=== PATIENT | male | born 1955 | race Caucasian/White ===

== ENCOUNTER → 2023-04-15 12:15 | Outpatient (REF) | payer OTHER, SELFPAY | LOC: WOUND 12:15 | PROVIDERS: ATTENDING PHYSICIAN Surgery; REFERRING PHYSICIAN Family Medicine | DX: I87.312 Chronic venous hypertension (idiopathic) with ulcer of left lower extremity (principal); L97.222 Non-pressure chronic ulcer of left calf with fat layer exposed; I87.2 Venous insufficiency (chronic) (peripheral); I73.9 Peripheral vascular disease, unspecified; I10 Essential (primary) hypertension; K76.0 Fatty (change of) liver, not elsewhere classified; E80.4 Gilbert syndrome | CPT/HCPCS: 97597; 97598 ==

== ENCOUNTER 2023-12-04 17:43 | Inpatient (IN) | payer OTHER, MEDICARE, SELFPAY ==
[2023-12-04] VITALS (8 sets, daily range): BP systolic 93–133; BP diastolic 66–83; BMI 50.1; BMI 48.5
[2023-12-04 13:29] LABS: % Basophils 0.2 % (0-2); % Eosinophils 1.3 % (0-6); % Immature Granulocytes 0.4 % (0-0.5); % Lymphocytes 4.8 % (20.5-51.1); % Monocytes 5.7 % (1.7-9.3); % Neutrophils 87.6 % (42.2-75.2); Absolute Eosinophils 0.2 10^3/uL (0-0.7); Absolute Immature Granulocytes 0.1 10^3/uL (0-0.05); Absolute Lymphocytes 0.6 10^3/uL (1.2-3.4); Absolute Monocytes 0.7 10^3/uL (0.1-0.6); Absolute Neutrophils 11.2 10^3/uL (1.4-6.5); Hematocrit 39.4 % (39.0-52.0); Hemoglobin 13.6 g/dL (13.0-18.0); Mean Corp Hgb Conc. 34.5 g/dL (33.0-37.0); Mean Corpuscular Hgb 29.5 pg (27.0-31.0); Mean Corpuscular Volume 85.5 fL (80.0-94.0); Mean Platelet Volume 9.5 fL (7.4-10.4); Nucleated Red Blood Cells % 0 % (-); Platelet Count 162 10^3/uL (130-400); Red Blood Cell Count 4.61 10^6/uL (4.70-6.10); Red Cell Dist. Width 15.1 % (11.5-14.5); White Blood Cell Count 12.7 10^3/uL (4.8-10.8)
[2023-12-04 13:43] LABS: Lactic Acid 1.3 mmol/L (0.7-2.0)
[2023-12-04 13:45] LABS: ALT (SGPT) 20 U/L (0-50); AST (SGOT) 24 U/L (17-59); Albumin 3.7 g/dl (3.5-5.0); Alkaline Phosphatase 68 U/L (38-126); Blood Urea Nitrogen 23 mg/dl (9-20); Calcium 8.8 mg/dl (8.4-10.2); Carbon Dioxide 29 mmol/L (22-30); Chloride 102 mmol/L (98-107); Estimated Creatinine Clearance 95 ml/min; Glucose 103 mg/dl (70-99); Potassium 3.9 mmol/L (3.5-5.1); Sodium 137 mmol/L (135-145); Total Bilirubin 1.4 mg/dl (0.2-1.3); Total Protein 6.7 g/dl (6.3-8.2); eGFR > 60.00
--- NOTE | 2023-12-04 16:11 | ED.GENMED ---
History of Present Illness
General
Chief Complaint: Weakness
Source: patient
Exam Limitations: none
Time Seen by Provider: 12/04/23 13:05
Travel History
Have you had any contact with someone who has COVID-19?: No
Do you have any symptoms of coronavirus? Fever > 100 degrees, chills, cough, shortness of breath, sore throat, loss of taste or smell, muscle aches, or headache?: No
History of Present Illness
History of Present Illness:
60-year-old male who presents after he came home from work was profoundly weak. He was found to be hypotensive by EMS. Patient does not have a history of cellulitis in the past. He was given IV fluids by EMS. Patient states he felt okay at work
when he got home he was profoundly weak. No chest pain. No shortness of breath. No abdominal pain. No vomiting. No diarrhea.
Past History
Past History
ED Past Medical History: HTN and Other (Obesity)
ED Past Surgical History: Orthopedic
Social History
Tobacco: Non-smoker
Alcohol: Occasional
Drug: None
Personal:
Living: with family
Family History
Family History: Other
Phy Exam
Physical Exam
Physical Exam:
CONSTITUTIONAL Patient alert and oriented to person, place and time. Well-appearing. Vital signs reviewed. Obese
HEAD atraumatic, normocephalic.
EYES eyelids normal to inspection,Extraocular muscles intact, Conjunctiva normal, Sclera normal.
NECK normal range of motion, Trachea midline, no jugular venous distention.
RESPIRATORY CHEST No respiratory distress noted, Chest expansion equal, Bilateral breath sounds clear.
CARDIOVASCULAR regular rate and rhythm, Heart sounds normal.
ABDOMEN abdomen nontender, Bowel sounds normal. No distention.
BACK normal inspection, no obvious deformities
UPPER EXTREMITY range of motion normal, Motor strength normal, no cyanosis, no edema.
LOWER EXTREMITY range of motion normal, Motor strength normal, no cyanosis, bilateral venous stasis noted. Redness noted throughout the right lower extremity much more significant than left side. Redness noted from the foot to the knee.
NEURO Speech normal, No focal motor deficits, [place] coma scale 15, Memory normal, Cranial Nerves intact to screening exam.
SKIN skin warm, dry, and normal in color.
PSYCHIATRIC patient oriented to person place and time, Normal affect.
Course
Orders/Labs/Results
Orders:
Orders
12/04/23 12:55
Electrocardiogram (*1) Urgent
Reason for Study: Other
Other Reason for Exam: Possible Sepsis
Cardiac Monitoring- Treatment ONCE
EKG- Treatment ONCE
IV Insert/Care/Rem.- Treatment PRN
O2 Therapy [RESP] Urgent
Titrate/Wean O2 to maintain O2 sat greater than (%): 93
Special Instructions: TO MAINTAIN CONTINUOUS O2 SATS > OR = 93%
Pulse Ox/cont/shift [RESP] Urgent
Quantity: 1
Special Instructions: CONTINUOUS
12/04/23 13:18
Complete Blood Count/With Diff Urgent
Comprehensive Metabolic Panel Urgent
Lactic Acid Q4H
Comment: ON ICE, CANCEL 2ND ORDER IF FIRST LACTIC ACID LEVEL <2
Blood Culture Q30M
BETHEL Source: Blood/Venous
Specimen Description:
Comment: FROM 2 SEPARATE SITES
Blood Culture Q30M
BETHEL Source: Blood/Venous
Specimen Description:
Comment: FROM 2 SEPARATE SITES
12/04/23 16:10
Vancomycin [Vancocin] 2,000 mg 0.9% Sodium Chloride 500 ml [Nss] 500 ml IV NOW
Abnormal Lab Results
12/04/23
13:18
WBC 12.7 H 10^3/uL
(4.8-10.8)
RBC 4.61 L 10^6/uL
(4.70-6.10)
RDW 15.1 H %
(11.5-14.5)
Abs Immat Gran (auto) 0.1 H 10^3/uL
(0-0.05)
Absolute Neuts (auto) 11.2 H 10^3/uL
(1.4-6.5)
Absolute Lymphs (auto) 0.6 L 10^3/uL
(1.2-3.4)
Absolute Monos (auto) 0.7 H 10^3/uL
(0.1-0.6)
Neutrophils % 87.6 H %
(42.2-75.2)
Lymphocytes % 4.8 L %
(20.5-51.1)
BUN 23 H mg/dl
(9-20)
Glucose 103 H mg/dl
(70-99)
Total Bilirubin 1.4 H mg/dl
(0.2-1.3)
12/04/23 13:18
12/04/23 13:18
Vital Signs
Initial and Last Documented VS:
Initial Vital Signs
Temp Pulse Resp BP Pulse Ox
99.0 F 84 25 93/83 92
12/04/23 13:00 12/04/23 13:00 12/04/23 13:00 12/04/23 13:00 12/04/23 13:00
Last Documented Vital Signs
Temp Pulse Resp BP Pulse Ox
99.1 F 68 28 127/68 96
12/04/23 15:14 12/04/23 15:45 12/04/23 15:45 12/04/23 14:00 12/04/23 15:45
MDM/Problems Addressed
MDM/Problems Addressed:
Morbid obesity, cellulitis, hypotension
*Pulse Oximetry
Patient hypoxic: no
*EKG
Interpreted by ED Provider?: Yes
Interpretation: abnormal
Rate: normal
Rhythm: sinus
[place]: left axis deviation
Ischemia: non-specific ST changes
*Fisher Eel Interpretation
Rate: normal
Interpretation: normal
Rhythm: sinus
*Critical Care Note
Total Time (30-74mins, 75-104mins- exclusive of procedures): Not Applicable
Data Reviewed
Review of Other/Old Records Reveals: Discharge Summary (2022 discharge summary reviewed. Prior history of cellulitis)
Source: patient
Further Testing Considered But Not Given:
Consider COVID testing but no URI sx's
Patient Management
Discussion with other providers: Hospitalist
Escalation/DeEscalation of care consider admission/obs:
68yo with hypotension and weakness. febrile here to 100.4. cx's sent. suspect cellulitis as etiology. admit
ED Attending Note
-
Portions of this chart may have been created with voice recognition software.� Occasional wrong word or��sound alike� substitutions may have occurred due to the inherent limitations of voice recognition software.
Discharge Plan
Departure
Patient Disposition: Admit
Date of Disposition: 12/04/23
Time of Disposition: 16:21
Admit to: Telemetry
Presentation/result/management discussed w/ accepting MD/DO: Hospitalist
Discharge Problem:
Cellulitis, Obesity
Prescriptions:
No Action
lisinopril-hydrochlorothiazide 20-12.5 mg Tablet
1 tab PO DAILY
aspirin 81 mg Tablet,Delayed Release (Dr/Ec)
81 mg PO DAILY
Centrum Men 8 mg iron- 200 mcg-600 mcg Tablet
1 tab PO DAILY
ibuprofen-acetaminophen [Dual Action Pain Reliever] 125-250 mg Tablet
2 tab PO DAILYPRN PRN (Reason: mild pain)
Turmeric + Piperine
2 cap PO DAILY
Referrals:
Alcides Yuen DO [Family Provider] -
Discharge Date and Time
Print Language: NOR[place] KOREAN
--- NOTE | 2023-12-04 16:21 | HPS.HSE ---
Family Physician
-
Family Physician: Alcides Yuen
Chief Complaint
-
generalized weakness
History of Present Illness
60-year-old male with PMH for HTN, obesity who presents after he came home from work was profoundly weak and not able to weak. his lowered him on the floor as he was not able to walk. he hit his head on rail. he had tamp of 100.7 at that time.
as per , he right LE looked redder than last week. he had wound on back on his leg, which was treated by wound care. Patient denied any headache, dizziness, syncopal episode. Pain, shortness of breath, cough, congestion. Patient denies
abdominal pain, nausea, vomiting, diarrhea. Patient denies dysuria hematuria.
On arrival he was hypertensive, noted elevated WBCs, fever of 100.4 patient received IV vancomycin in the ER. Admitting for further management
Medical History
Past Medical History
Past Medical History: Reports Other
Additional Past Medical History:
Gilbert's syndrome
Lumbar spinal stenosis
Lumbar herniated disc
Adrenal adenoma
fatty liver
Degenerative disc disease chronic venous hypertension
Peripheral venous insufficiency
Hypertension
Nonpressure chronic ulcer of left calf
Past Surgical History: Reports Other
Additional Past Surgical History:
Left total hip replacement
Social History
Tobacco: Non-smoker
Alcohol: None
Drug: None
Personal:
Living: With Family
Family History
Family History: Not pertinent
Allergies / Home Medications
Allergies reflects when Allergies were last updated in [facility].
Home Medications with original date entered in [facility]
Allergy/Medication List:
Allergies
Allergy/AdvReac Type Severity Reaction Status Date / Time
shrimp Allergy wheeze Verified 05/25/23 17:57
Home Medications
Turmeric + Piperine 2 cap PO DAILY 12/04/23
aspirin 81 mg tablet,delayed release 81 mg PO DAILY 12/04/23
ibuprofen 125 mg-acetaminophen 250 mg tablet (Dual Action Pain Reliever) 2 tab PO DAILYPRN PRN mild pain 12/04/23
lisinopril 20 mg-hydrochlorothiazide 12.5 mg tablet 1 tab PO DAILY 12/04/23
multivit,Ca,min-iron 8 mg-folic acid 200 mcg-lycopene 600 mcg tablet (Centrum Men) 1 tab PO DAILY 12/04/23
Review of Systems
-
Constitutional: Reports Fever and Fatigue
EENT: Reports No Symptoms
Respiratory: Reports No Symptoms
Cardiac: Reports No Symptoms
Abdomen/GI: Reports No Symptoms
: Reports No Symptoms
Musculoskeletal: Reports No Symptoms
Skin: Reports Other (Right lower extremity red)
Neurological: Reports Weakness
Endocrine: Reports No Symptoms
Hematologic/Lymphatic: Reports No Symptoms
Psych: Reports No Symptoms
Physical Exam
Vital Signs
Vital Signs
Temp Pulse Resp BP Pulse Ox
99.1 F 68 28 127/68 96
12/04/23 15:14 12/04/23 15:45 12/04/23 15:45 12/04/23 14:00 12/04/23 15:45
Physical Exam
General: Well Developed, Well Nourished and No Apparent Distress
HEENT: NormoCephalic, Moist mucous membranes and Atraumatic
Respiratory: Clear
Cardiac: S1/S2 and Regular Rhythm; No Murmur or Rub
GI: Soft, Non Tender, Non Distended and Normal Bowel Sounds; No Organomegaly
Rectal: Deferred by Provider
Musculoskeletal: No Clubbing, No Cyanosis and No Edema
Skin: Rash and Other (Right lower extremities redness)
Neuro: AO x 3 and Nonfocal/grossly intact
Psych: Calm
Laboratory Results
-
12/04/23 13:18
12/04/23 13:18
Laboratory Results
Lactic Acid 1.3 mmol/L (0.7-2.0) 12/04/23 13:18
Lactic Acid Cancelled 12/04/23 13:18
Total Bilirubin 1.4 mg/dl (0.2-1.3) H 12/04/23 13:18
AST 24 U/L (17-59) 12/04/23 13:18
ALT 20 U/L (0-50) 12/04/23 13:18
Alkaline Phosphatase 68 U/L (38-126) 12/04/23 13:18
Data Reviewed
-
Lab Data: Labs Reviewed by me
Impression/Plan
-
#fever likely from cellulitis
- sepsis as evident by wbc 12.7, fever 100.4,hypotension
-blood culture sent from ER
-vancomycin in ER
-cefazolin
-Tylenol prn for pain
#Chronic venous stasis dermatitis
#Essential Hypertension
-Hypotensive in ER
-Hold lisinopril/HCTZ
#Morbid Obesity due to excess calories
#DVT prophylaxis�subcu Lovenox
#Full code
--- NOTE | 2023-12-04 16:23 | W.PN.UPDATE ---
Update Note
Progress Note Update
This is an addendum to H&P written by OCULAR PATHOLOGIST Yusra Jackson.
I saw and examined the patient.
The OCULAR PATHOLOGIST's note was reviewed and I agree with the note.
Comment:
Mr. Alcides Paul is a 68 yo man with hx obesity, essential hypertension, chronic venous stasis dermatitis, chronic left lower extmirety wounds, hx recurrent lower extremity cellulitis (admission May 2023) presents to the ER with fever.
Triage VS: T 99, P 84, RR 25, BP 93/83 up to 127/68 post fluids, SpO2 92%
LABS: WBC 12.7, Hg 13.6, PLT 162, Na 137, K+ 3.9, Cl 102, Cr 1.0, Glucose 103, T. Bili 1.4
Lactate 1.3
MAR: IV Vancomycin
On exam patient appears flushed, he is conversant, lung clear. obese. LLE with chronic venous changes; RLE with significant erythema, swelling.
Sepsis 2/2 RLE Cellulitis
-admit to med/surg
-IV Vanc/Cefazolin
-IVF
-F/U cultures
Essential HTN
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
DVT PPx Lovenox
[2023-12-04] MEDS: VANCOCIN 540 MG IV (16:46)
[2023-12-04] MEDS: TYLENOL 650 MG PO (17:51)
[2023-12-04] MEDS: ANCEF 10 IV (18:28)
--- NOTE | 2023-12-04 19:45 | PTCARENOTE ---
Pt arrived to room 437-01. Pt transferred from stretcher to bed. Pt AAOx3, VSS. Pt in no signs of acute distress, respirations regular. at bedside. Pt oriented to room, call bone placed within reach.
[2023-12-04] MEDS: LOVENOX 40 MG SC (20:26)
[2023-12-04] MEDS: NSS 1000 IV (20:27)
[2023-12-05] MEDS: ANCEF 10 IV ×3 (01:45→16:42)
[2023-12-05 06:36] LABS: Hemoglobin 12.9 g/dL (13.0-18.0); Mean Corp Hgb Conc. 32.3 g/dL (33.0-37.0); Mean Corpuscular Hgb 29.2 pg (27.0-31.0); Mean Corpuscular Volume 90.5 fL (80.0-94.0); Mean Platelet Volume 9.6 fL (7.4-10.4); Platelet Count 141 10^3/uL (130-400); Red Blood Cell Count 4.42 10^6/uL (4.70-6.10); Red Cell Dist. Width 15.3 % (11.5-14.5); White Blood Cell Count 9.9 10^3/uL (4.8-10.8)
[2023-12-05 06:53] LABS: Blood Urea Nitrogen 19 mg/dl (9-20); Calcium 8.3 mg/dl (8.4-10.2); Carbon Dioxide 30 mmol/L (22-30); Chloride 103 mmol/L (98-107); Estimated Creatinine Clearance 116 ml/min; Glucose 85 mg/dl (70-99); Potassium 4.3 mmol/L (3.5-5.1); Sodium 140 mmol/L (135-145); eGFR > 60.00
[2023-12-05 06:55] LABS: Vancomycin Random 8.9 ug/ml
[2023-12-05 07:00] VITALS: BP 151/78
--- NOTE | 2023-12-05 07:57 | PHA.VAN.IN ---
Assessment
- Assessment
Renal Function: Appears similar to baseline
Concomitant Antimicrobials: cefazolin
AUC Dosing Plan
- Dosing Variables
Dosing Weight (kg): 137
Dosing CrCl (ml/min): 116
Vd coefficient (L/kg): 0.5
- Empiric Dosing
Initial / Loading Dose: 2000mg - 12/03 16:46
Maintenance Regimen: Vanc 1500mg Q12H - first dose now then 1800
Estimated AUC (mcg*h/mL): 468
Estimated Peak (mcg*h/mL): 31.2
Estimated Trough (mcg/ml): 10.8
Estimated Half Life (H): 6.9
random 8.9 - drawn ~13.5H after 2g loading dose - appropriate to start scheduled dosing
- Monitoring
No levels ordered at this time: may be slow to accumulate with BMI
Pharmacokinetics Vancomycin I
- -
Patient Age: 68
Patient Sex: Male
Vancomycin Day #: 1
Indication: Skin And Soft Tissue
Requesting Provider: Sheri Jackson
Pertinent Antimicrobial Allergies:
no pertinent antibiotic allergies
Height / Weight:
Height 5 ft 6 in
Actual Weight 136.191 kg
Pertinent Past Medical History: BMI ~48.5
- Vital Signs / Lab Results
Temp Pulse Resp BP Pulse Ox
98.3 F 63 18 151/78 98
12/05/23 07:00 12/05/23 07:00 12/05/23 07:00 12/05/23 07:00 12/05/23 07:00
Lab Results - Hematology
12/04/23 12/05/23
13:18 06:15
WBC 12.7 H 9.9
Lab Results - Chemistry
12/04/23 12/05/23
13:18 06:15
BUN 23 H 19
Creatinine 1.0 0.8
Estimated Creat Clear 95 116
Albumin 3.7
12/04/23 12/04/23
13:18 13:18
Lactic Acid 1.3 Cancelled
[2023-12-05] MEDS: ASPIR LOW (ENTERIC COATED) 81 MG PO (08:17)
[2023-12-05] MEDS: VANCOCIN 300 ML IV ×2 (08:17→16:43)
[2023-12-05] MEDS: VANCOCIN 300 MG IV ×2 (08:17→16:43)
--- NOTE | 2023-12-05 09:07 | PTCARENOTE ---
pt aaox3. upset at having to be in the hospital. reviewed pt condition and plan of care with pt. condom cath on pt. right lower leg red warm. pulses weak on palpation. left ll brown.
[2023-12-05] MEDS: DESENEX/MITRAZOL/ZEASORB TOPICAL ×2 (09:58→19:17)
--- NOTE | 2023-12-05 09:58 | PTCARENOTE ---
pt refusing desenex states it causes a rash
[2023-12-05 10:11] LABS: Urine Albumin Trace (Neg - Trace); Urine Bilirubin Negative (Negative); Urine Character Very Cloudy (Clear); Urine Color Yellow; Urine Glucose Negative (Negative); Urine Ketone Negative (Negative); Urine Leukocyte 2+ (Negative); Urine Nitrite Positive (Negative); Urine Occult Blood 3+ (Negative); Urine Specific Gravity 1.015 (<1.030); Urine Urobilinogen Negative (Neg - 1+); Urine pH 6.5 (5.0-9.0)
[2023-12-05 10:54] LABS: Urine Bacteria Many (Negative); Urine White Cell >100 /HPF (0-5)
--- NOTE | 2023-12-05 11:11 | W.PN.HOSP.TC ---
Today's Communication/Plan
-
see plan
Assessment / Plan
Assessment / Plan
Mr. Alcides Paul is a 68 yo man with hx obesity, essential hypertension, chronic venous stasis dermatitis, chronic left lower extmirety wounds, hx recurrent lower extremity cellulitis (admission May 2023) presents to the ER with fever.
Sepsis 2/2 RLE Cellulitis
-admit to med/surg
-IV Vanc/Cefazolin (day 2)
-IVF - stop today
-F/U cultures
-RLE Elevation
Essential HTN
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 resume lisinopril later today if remains hypertensive
DVT PPx Lovenox
Anticipated Discharge: 24 - 48 hours
Subjective/Interval History
-
Date of Service: December 05, 2023
asking when he can go home
Objective Data
-
Labs:
Laboratory Results
12/05/23
06:15
WBC 9.9
Hgb 12.9 L
Hct 40.0
Plt Count 141
Sodium 140
Potassium 4.3
Chloride 103
Carbon Dioxide 30
BUN 19
Creatinine 0.8
Glucose 85
Calcium 8.3 L
Vital Signs:
Vital Signs
Temp Pulse Resp BP Pulse Ox
98.3 F 63 18 151/78 98
12/05/23 07:00 12/05/23 07:00 12/05/23 07:00 12/05/23 07:00 12/05/23 07:00
I&O
12/04/23 12/05/23 12/06/23
06:59 06:59 06:59
Output Total 200 / 200
Balance -200 / -200
Review of Systems
-
History Source: Patient
All other systems: Reviewed and negative
Physical Exam
-
General: Well Developed, Well Nourished, No Apparent Distress and Morbidly Obese
HEENT: Normocephalic and Atraumatic
Respiratory: Clear to Auscultation; Negative Wheezes
Cardiac: Regular Rhythm and S1/S2
Musculoskeletal: Other (RLE with persistent erythema possibly slightly improved )
Skin: Warm, Dry and Other (venous stasis discoloration LLE)
Neuro: AO x 3
Psych: Calm
Data Reviewed
-
Diagnostic Radiology: Report Reviewed by me
Labs: Labs Reviewed by me
[2023-12-05 13:49] VITALS: BP 171/88
[2023-12-05] MEDS: TYLENOL 650 MG PO ×2 (13:50→19:38)
[2023-12-05] MEDS: ZESTRIL 20 MG PO (13:53)
--- NOTE | 2023-12-05 14:13 | PTCARENOTE ---
pt temp up to 102 tylenol given and ice packs placed under armpits and groin
[2023-12-05 15:00] VITALS: BP 147/71
--- NOTE | 2023-12-05 16:34 | CM ---
Patient seen at bedside with . Patient stated that he is still working and that he lives with in ranch style home. Patient has no DME and PCP is Dr. Yuen. Patient uses the [facility] on [address] Patient plan is for discharge home with no
needs. Patient has not signed up for [facility]. CM will continue to follow for discharge planning needs.
Plan; home with no needs vs home with VN
[2023-12-05] MEDS: LOVENOX 40 MG SC (16:42)
[2023-12-05 22:49] VITALS: BP 128/69
[2023-12-06] MEDS: ANCEF 10 IV ×2 (01:42→09:09)
[2023-12-06] MEDS: VANCOCIN 300 MG IV (05:39)
[2023-12-06] MEDS: VANCOCIN 300 ML IV (05:39)
[2023-12-06 07:25] VITALS: BP 151/82
[2023-12-06 08:41] LABS: Blood Urea Nitrogen 18 mg/dl (9-20); Calcium 8.4 mg/dl (8.4-10.2); Carbon Dioxide 28 mmol/L (22-30); Chloride 102 mmol/L (98-107); Estimated Creatinine Clearance 103 ml/min; Glucose 86 mg/dl (70-99); Sodium 136 mmol/L (135-145); eGFR > 60.00
[2023-12-06] MEDS: ASPIR LOW (ENTERIC COATED) 81 MG PO (09:09)
[2023-12-06] MEDS: ZESTRIL 20 MG PO (09:09)
[2023-12-06] MEDS: DESENEX/MITRAZOL/ZEASORB 1 APPLIC TOPICAL (09:10)
--- NOTE | 2023-12-06 10:41 | PHA.VAN.FU ---
Vancomycin Assessment / Plan
- Assessment
Renal Function: Stable
Concomitant Antimicrobials: cefazolin
- Dosing Plan
Continue: Vanc 1500mg Q12H
- Monitoring Plan
No level(s) ordered at this time: will hold off on levels for now to give time to fully accumulate
Monitoring Comments: patient may be slow to accumulate with BMI
- Follow Up
Pharmacy will continue to follow.
Vancomycin Follow UP
- -
Patient Age: 68
Patient Sex: Male
Vancomycin Day #: 2
Indication: Skin And Soft Tissue
Requesting Provider: Sheri Jackson
Pertinent Antimicrobial Allergies:
no pertinent antibiotic allergies
Height / Weight:
Height 5 ft 6 in
Actual Weight 136.191 kg
Pertinent Past Medical History: BMI ~48.5
- Vital Signs / Lab Results
Temp Pulse Resp BP Pulse Ox
98.2 F 70 18 151/82 98
12/06/23 07:25 12/06/23 07:25 12/06/23 07:25 12/06/23 07:25 12/06/23 07:25
Lab Results - Hematology
12/04/23 12/05/23
13:18 06:15
WBC 12.7 H 9.9
Lab Results - Chemistry
12/04/23 12/05/23 12/06/23
13:18 06:15 07:06
BUN 23 H 19 18
Creatinine 1.0 0.8 0.9
Estimated Creat Clear 95 116 103
Albumin 3.7
12/04/23 12/04/23
13:18 13:18
Lactic Acid 1.3 Cancelled
Lab Results - Urine
12/05/23
09:45
Urine Nitrite (Reflex) Positive A
Leukocyte Esterase Rfl 2+ A
Ur Squamous Epith Cells 11-15
Microbiology Results
12/04/23 13:18 Blood Culture - Preliminary
Blood/Venous No Growth in 24 hours- Final report to follow
12/04/23 13:18 Blood Culture - Preliminary
Blood/Venous No Growth in 24 hours- Final report to follow
Therapeutic Drug Monitoring
Random Vancomycin 8.9 ug/ml 12/05/23 06:15
--- NOTE | 2023-12-06 11:41 | W.PN.HOSP.TC ---
Today's Communication/Plan
-
expect DC after seen by PT
Assessment / Plan
Assessment / Plan
Mr. Alcides Paul is a 68 yo man with hx obesity, essential hypertension, chronic venous stasis dermatitis, chronic left lower extmirety wounds, hx recurrent lower extremity cellulitis (admission May 2023) presents to the ER with fever.
Sepsis 2/2 RLE Cellulitis
-admit to med/surg
-IV Vanc/Cefazolin (day 3) --> change to Doxy/Keflex on DC x 7 more days
-IVF - stop today
-F/U cultures
-RLE Elevation
Essential HTN
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
-resume home meds on DC
likely DC after seen by PT
DVT PPx Lovenox
Anticipated Discharge: Within 24 hours
Subjective/Interval History
-
Date of Service: December 06, 2023
feeling better
wants to go home
Objective Data
-
Labs:
Laboratory Results
12/06/23
07:06
Sodium 136
Potassium 4.0
Chloride 102
Carbon Dioxide 28
BUN 18
Creatinine 0.9
Glucose 86
Calcium 8.4
Vital Signs:
Vital Signs
Temp Pulse Resp BP Pulse Ox
98.2 F 70 18 151/82 98
12/06/23 07:25 12/06/23 07:25 12/06/23 07:25 12/06/23 07:25 12/06/23 07:25
I&O
12/05/23 12/06/23 12/07/23
06:59 06:59 06:59
Intake Total 240 / 240
Output Total 200 / 200 700 / 700
Balance -200 / -200 -460 / -460
Review of Systems
-
History Source: Patient
All other systems: Reviewed and negative
Physical Exam
-
General: Well Developed, Well Nourished, No Apparent Distress and Morbidly Obese
HEENT: Normocephalic and Atraumatic
Respiratory: Clear to Auscultation; Negative Wheezes
Cardiac: Regular Rhythm and S1/S2
Musculoskeletal: Other (RLE with persistent erythema now much improved)
Skin: Warm, Dry and Other (venous stasis discoloration LLE)
Neuro: AO x 3
Psych: Calm
Data Reviewed
-
Diagnostic Radiology: Report Reviewed by me
Labs: Labs Reviewed by me
--- NOTE | 2023-12-06 11:51 | W.DS.TRANS ---
DC Summary - Drop Hammer Setter Up
-
Discharge Instructions:
Discharge Diagnosis/Procedures right lower extremity cellulitis
Diet Low Cholesterol
Activity As tolerated
Bathing Restrictions None
Instructions:
Stand-Alone Forms:
Changes to Home Medications: Yes
Discharge Medications:
DC Medications w/original date entered in [facility]
Turmeric + Piperine 2 cap PO DAILY 12/04/23
aspirin 81 mg tablet,delayed release 81 mg PO DAILY 12/04/23
ibuprofen 125 mg-acetaminophen 250 mg tablet (Dual Action Pain Reliever) 2 tab PO DAILYPRN PRN mild pain 12/04/23
lisinopril 20 mg-hydrochlorothiazide 12.5 mg tablet 1 tab PO DAILY 12/04/23
multivit,Ca,min-iron 8 mg-folic acid 200 mcg-lycopene 600 mcg tablet (Centrum Men) 1 tab PO DAILY 12/04/23
cephalexin 500 mg capsule 500 mg PO Q6H Infection 7 days #28 caps 12/06/23
doxycycline hyclate 100 mg capsule (Vibramycin) 100 mg PO BID cellultis #14 caps 12/06/23
Home Medication Changes
addition of Keflex/Doxy
Pending Results: No
[2023-12-06 13:34] VITALS: BP 182/87; O2SAT 93
--- NOTE | 2023-12-06 14:15 | CM ---
Patient seen at bedside. Patient states that he does not want VN and that he will go home with his . Patient stated that he is not signed up with medicare and has only private insurance. CM will continue to follow for discharge planning needs.
Plan; home with no needs
--- NOTE | 2023-12-06 14:35 | W.DCSUMMARY ---
Discharge Summary
Discharge Data
Date of Admission: 12/04/23
Date of Discharge: 12/06/23
-
Pending Results: No
Hospital Course
Discharging Physician : Dr. Itzel Valle
Disposition : Home
Primary care physician : Dr. Alcides Yuen
Principal Discharge diagnosis : Right lower extremity cellulitis
Hospital Course :
Mr. Alcides Paul is a 68 yo man with hx obesity, essential hypertension, chronic venous stasis dermatitis, chronic left lower extmirety wounds, hx recurrent lower extremity cellulitis (admission May 2023) presents to the ER with fever and
weakness. Triage vitals T 99, BP 93/83 up to 127/68 post fluids, SpO2 92%. Exam notable for significant RLE erythema. Labs with WBC 12.7, lactate 1.3, Cr 1.0. Patient was admitted to medicine for treatment of sepsis 2/2 RLE Cellulitis. He
improved on IV Vanc/Cefazolin. Patient was very eager for discharge on hospital day 2 and is discharged with 7 more days of Keflex and Doxycycline.
Of note, PT worked with patient prior to discharge and he had difficulty getting out of bed 2/2 body habitus. came and believes patient at baseline, mobility worse in hospital given bed positioning and she feels comfortable bringing him home
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
HH ordered.
Time spent on discharge 32 minutes.
Important imaging findings :
Procedure findings :
Discharge Plan
-
Patient Disposition: Home with Home Care
Discharge Diagnosis/Procedures: right lower extremity cellulitis
Diet: Low Cholesterol
Activity: As tolerated
Bathing Restrictions: None
Other Services: VN and PT
Referrals:
Alcides Yuen, DO [Family Provider] - in less than 1 week
Prescriptions:
New
cephalexin 500 mg capsule
500 mg PO Q6H 7 Days Qty: 28 0RF
doxycycline hyclate [Vibramycin] 100 mg capsule
100 mg PO BID Qty: 14 0RF
Continued
lisinopril-hydrochlorothiazide 20-12.5 mg Tablet
1 tab PO DAILY
aspirin 81 mg Tablet,Delayed Release (Dr/Ec)
81 mg PO DAILY
Centrum Men 8 mg iron- 200 mcg-600 mcg Tablet
1 tab PO DAILY
ibuprofen-acetaminophen [Dual Action Pain Reliever] 125-250 mg Tablet
2 tab PO DAILYPRN PRN (Reason: mild pain)
Turmeric + Piperine
2 cap PO DAILY
Discharge Orders:
Discharge Patient (As Directed); Ordered 12/06/23
Ordered By: Itzel Valle
Discharge Date and Time
Print Language: [place]UD[place]
[2023-12-06 15:25] VITALS: BP 161/82
--- NOTE | 2023-12-06 15:43 | PTCARENOTE ---
pt refused to go to rehab even though it was very apparent that he needs it. pt is unable to stand on his own ability and needs two people heavy assist just to stand up. pt recommended rehab as well as the doctor but patient refused and wants to go
home. upon doing discharge instructions with patient, patients stated that patient is going to need 2 people to help him stand up. i made it known at the time that we cannot help patient at the car to stand up and help in into the car. patients
stated 'what happens if he falls?' i told her that your refused rehab and wanted to go home and it was perfectly made clear at the time that no one would be able to help him into the car. i asked one of my PCT's to go down with the
patient on d/c with transportation economics teacher just to help him stand and let the patient do the rest. family was ok with that plan. and patient was told that we were not liable if patient fell outside and would have to go back to the ER and get
admitted again if he did fall. and patient acknowledged the risks of being d/c without rehab and what could happen if they try to go home against medical advice. Dr. Valle is aware of situation.
== END 2023-12-06 16:02 | disposition home or self-care (01) | DRG 872 ==
LOC: 4 WEST ACU 17:43
PROVIDERS: Emergency Medicine; Registered Nurse; ADMITTING PHYSICIAN Student in an Organized Health Care Education/Training Program; EMERGENCY PHYSICIAN Emergency Medicine; FAMILY PHYSICIAN Family Medicine
DX: A41.9 Sepsis, unspecified organism (principal); L03.115 Cellulitis of right lower limb; L97.229 Non-pressure chronic ulcer of left calf with unspecified severity; Z68.41 Body mass index [BMI] 40.0-44.9, adult; K76.0 Fatty (change of) liver, not elsewhere classified; E66.01 Morbid (severe) obesity due to excess calories; I10 Essential (primary) hypertension; I95.9 Hypotension, unspecified; E80.4 Gilbert syndrome; I87.2 Venous insufficiency (chronic) (peripheral); D35.00 Benign neoplasm of unspecified adrenal gland; M48.061 Spinal stenosis, lumbar region without neurogenic claudication; M51.26 Other intervertebral disc displacement, lumbar region; Z96.642 Presence of left artificial hip joint; Z79.82 Long term (current) use of aspirin; Z79.899 Other long term (current) drug therapy
CPT/HCPCS: 80048; 80053; 80202; 81003; 81015; 83605; 85025; 85027; 87040; 87086; 93005; 96365; 96366; 97163; 99285

== ENCOUNTER 2024-04-25 14:02 | Inpatient (IN) | payer OTHER, MEDICARE, SELFPAY ==
[2024-04-25] VITALS (8 sets, daily range): BP systolic 98–146; BP diastolic 48–87; BMI 47.1
--- NOTE | 2024-04-25 09:43 | ED.GENMED ---
History of Present Illness
General
Chief Complaint: Fever
Source: patient, records, spouse and ambulance crew
Exam Limitations: none
Time Seen by Provider: 04/25/24 09:33
Nursing documentation reviewed up to this point in time: agreed with
History of Present Illness
History of Present Illness:
69-year-old male with a past medical history of hypertension, obesity, DVT no longer on anticoagulation who presents to the emergency room from home where he lives with his , presents via EMS for evaluation of fever. Patient reports high fever
this morning to 102 �F; apparently his came in 650 mg of Tylenol and called EMS to bring to the hospital. He says that aside from fever this morning only other issue over the past few days has been some increasing redness and swelling of the
right leg. He also reports some pain in the right leg. He denies any headache or neck pain. Denies any chest pain, abdominal pain. No cough or shortness of breath, URI symptoms. He denies any dysuria hematuria or change in urinary frequency.
Denies any flank pain. He says he has had severe infections in his right leg in the past. Denies history of diabetes.
Past History
Past History
ED Past Medical History: HTN and Other (Obesity)
ED Past Surgical History: Orthopedic
Social History
Tobacco: Non-smoker
Alcohol: Occasional
Drug: None
Personal:
Living: with family
Family History
Family History: Other
Review of Systems
Review of Systems
All Other Systems: ROS reviewed and negative except as documented in HPI and ROS
Constitutional: Reports fever; Denies chills
EENT: Denies sore throat or runny nose
Respiratory: Denies cough or trouble breathing
Cardiac: Denies chest pain or palpitations
ABD/GI: Denies abdominal pain, nausea, vomiting or diarrhea
: Denies dysuria, frequency, flank pain or bleeding
Musculoskeletal: Reports edema; Denies neck pain or back pain
Skin: Reports other (Redness and pain right lower extremity)
Neurological: Denies headache
Phy Exam
Physical Exam
Physical Exam:
General: Awake, alert, oriented x3; no acute distress
Head: Normocephalic, atraumatic
Eyes: Conjunctiva normal, sclera anicteric
Throat: Airway intact, handling secretions
Neck: Trachea midline, supple without meningismus
Lungs: Clear to auscultation bilaterally, no wheezing, rales, rhonchi
Heart: Tachycardia with regular rhythm, no murmurs, gallops, or rubs
Abd: Soft, non distended, nontender
Neuro: No gross deficit
Skin: Patient has chronic venous stasis changes in both lower extremities, right lower extremity markedly erythematous, indurated, warm, tender to the touch from essentially the knee down to the dorsum of the foot
Extremities: Skin changes as above; he does have +1 edema in the lower extremities bilaterally; has good pulses in all extremities�specifically strong right DP pulse palpable to touch
Scores
Heart Failure Risk
Heart Failure Risk Score: Not Applicable
Heart Score for Chest Pain Patients
STEMI patient?: Not applicable
Withdrawal Assessment of Alcohol
Withdrawal Assessment Completed?: Not applicable
Sepsis
Sepsis Screening
Sepsis Assessment: Sepsis
Sepsis Screen
Sepsis Screen: Sepsis
Date: 04/25/24
Time: 11:55
Course
Orders/Labs/Results
Orders:
Orders
04/25/24 09:40
Ibuprofen [Motrin] 400 mg PO NOW STA
CR Leg Tibia/fibula Right 2 Vw Urgent
Comment:
Reason For Exam: RLE redness, swelling, pain
US Periph Venous LOWER Ext RT Urgent
Comment:
Reason For Exam: red, swollen, painful RLE
04/25/24 09:41
Urinalysis Reflex To Culture Urgent
Date Specimen was Collected: 04/25/24
Time Specimen was Collected: 11:11
04/25/24 09:42
0.9% Sodium Chloride 1000 ml [Nss] 1,000 ml IV BOLUS
CeFAZolin 2 GRAM [Ancef] 2 grams in 10 ml IV NOW
04/25/24 09:49
CRP [C-Reactive Protein] Urgent
Comprehensive Metabolic Panel Urgent
Blood Culture Q30M
BETHEL Source: Blood/Venous
Specimen Description:
04/25/24 09:50
COVID-19 Antigen Urgent
Source: Nasal Swab
Complete Blood Count/With Diff Urgent
ESR [Erythrocyte Sed Rate] Urgent
Lactate Level [Lactic Acid] Urgent
Influenza A+B Rapid Molecular Urgent
BETHEL Source: Nasal Swab
Specimen Description:
04/25/24 10:03
Blood Culture Q30M
BETHEL Source: Blood/Venous
Specimen Description:
04/25/24 11:29
PTT Routine
Prothrombin Time Routine
Abnormal Lab Results
04/25/24 04/25/24
09:49 09:50
WBC 16.5 H 10^3/uL
(4.8-10.8)
Abs Immat Gran (auto) 0.1 H 10^3/uL
(0-0.05)
Absolute Neuts (auto) 15.7 H 10^3/uL
(1.4-6.5)
Absolute Lymphs (auto) 0.2 L 10^3/uL
(1.2-3.4)
Immature Gran % 0.8 H %
(0-0.5)
Neutrophils % 95.0 H %
(42.2-75.2)
Lymphocytes % 1.4 L %
(20.5-51.1)
ESR 23 H mm/hour
(0-20)
BUN 26 H mg/dl
(9-20)
Glucose 115 H mg/dl
(70-99)
Total Bilirubin 1.8 H mg/dl
(0.2-1.3)
C-Reactive Protein 31.90 H mg/L
(0.0-10.00)
04/25/24 09:50
04/25/24 09:49
Vital Signs
Initial and Last Documented VS:
Initial Vital Signs
Pulse Resp BP
94 32 146/87
04/25/24 09:38 04/25/24 09:38 04/25/24 09:38
Last Documented Vital Signs
Temp Pulse Resp BP Pulse Ox
39.3 C H 108 20 146/87 97
04/25/24 10:14 04/25/24 11:25 04/25/24 11:25 04/25/24 09:39 04/25/24 09:45
MDM/Problems Addressed
Differential Diagnosis Includes:
Cellulitis, DVT
MDM/Problems Addressed:
69-year-old male presents to the emergency room with fever and right leg redness, swelling, pain�right leg becoming red and swollen over the past 2 to 3 days according the patient and today with high fever. Received Tylenol prehospital. Arrives to
us febrile and tachycardic with mild tachypnea; rest of vitals normal. Physical exam as above. Plan to place an IV send labs including a CBC and a CMP, ESR/CRP, lactate, blood cultures. Send viral swabs. Check x-ray of the right leg as well as
an ultrasound to rule out DVT given his history of DVT. Clinical suspicion at this point is cellulitis and with multiple SIRS criteria concern possibly for sepsis. Will provide fluids and IV antibiotics. Provide Motrin as he remains febrile
despite Tylenol prehospital. Monitor closely reassess after the above. Anticipate admission.
Labs reviewed: CBC shows leukocytosis to 16.5. ESR and CRP elevated. CMP no clinically significant abnormalities. X-ray of the tib-fib shows no acute pathology on my review. DVT study called back negative for DVT. Patient given IV antibiotics
clinical suspicion at this point is sepsis related to cellulitis of the right lower extremity. Case discussed with hospitalist for admission.
Chronic conditions affecting care:
Obesity
*Radiology
Radiology exam reviewed: preliminary read by ED provider and radiology read reviewed
*Pulse Oximetry
Patient hypoxic: no
*Critical Care Note
Total Time (30-74mins, 75-104mins- exclusive of procedures): Not Applicable
Data Reviewed
Source: patient, records, spouse and ambulance crew
Patient Management
Discussion with other providers: Hospitalist (Discussed with hospitalist)
Escalation/DeEscalation of care consider admission/obs:
Admission indicated
ED Attending Note
-
Portions of this chart may have been created with voice recognition software.� Occasional wrong word or��sound alike� substitutions may have occurred due to the inherent limitations of voice recognition software.
Discharge Plan
Departure
Patient Disposition: Admit
Date of Disposition: 04/25/24
Time of Disposition: 11:55
Admit to doctor: [facility]
Presentation/result/management discussed w/ accepting MD/DO: Hospitalist
Discharge Problem:
Sepsis due to cellulitis
Prescriptions:
No Action
lisinopril-hydrochlorothiazide 20-12.5 mg Tablet
1 tab PO DAILY
aspirin 81 mg Tablet,Delayed Release (Dr/Ec)
81 mg PO DAILY
Centrum Men 8 mg iron- 200 mcg-600 mcg Tablet
1 tab PO DAILY
ibuprofen-acetaminophen [Dual Action Pain Reliever] 125-250 mg Tablet
2 tab PO DAILYPRN PRN (Reason: mild pain)
Turmeric + Piperine
2 cap PO DAILY
cephalexin 500 mg capsule
500 mg PO Q6H 7 Days Qty: 28 0RF
doxycycline hyclate [Vibramycin] 100 mg capsule
100 mg PO BID Qty: 14 0RF
Referrals:
Alcides Yuen DO [Family Provider] -
Interventions
Interventions:
*Risk Screen - Suicide Last Done: 04/25/24 09:39
*General Assessment Last Done: 04/25/24 09:39
*Neglect/Abuse Screening Last Done: 04/25/24 09:39
ED- Fall Risk Assessment Last Done: 04/25/24 09:39
*ED COVID-19 Vaccine History Last Done: 04/25/24 09:39
ED- Neurological Assessment Last Done: 04/25/24 09:39
ED-Skin Assessment Last Done: 04/25/24 09:39
Discharge Date and Time
Print Language: KYRGYZ
[2024-04-25] MEDS: MOTRIN 400 MG PO (10:07)
[2024-04-25] MEDS: NSS 1000 IV ×2 (10:08→18:23)
[2024-04-25] MEDS: ANCEF 10 IV (10:08)
[2024-04-25 10:21] LABS: % Basophils 0.2 % (0-2); % Eosinophils 0.1 % (0-6); % Immature Granulocytes 0.8 % (0-0.5); % Lymphocytes 1.4 % (20.5-51.1); % Monocytes 2.5 % (1.7-9.3); Absolute Immature Granulocytes 0.1 10^3/uL (0-0.05); Absolute Lymphocytes 0.2 10^3/uL (1.2-3.4); Absolute Monocytes 0.4 10^3/uL (0.1-0.6); Absolute Neutrophils 15.7 10^3/uL (1.4-6.5); Hematocrit 43.6 % (39.0-52.0); Hemoglobin 14.8 g/dL (13.0-18.0); Mean Corp Hgb Conc. 33.9 g/dL (33.0-37.0); Mean Corpuscular Hgb 30.1 pg (27.0-31.0); Mean Corpuscular Volume 88.6 fL (80.0-94.0); Nucleated Red Blood Cells % 0 % (-); Platelet Count 191 10^3/uL (130-400); Red Blood Cell Count 4.92 10^6/uL (4.70-6.10); Red Cell Dist. Width 13.9 % (11.5-14.5); White Blood Cell Count 16.5 10^3/uL (4.8-10.8)
[2024-04-25 10:22] LABS: Lactic Acid 1.6 mmol/L (0.7-2.0)
[2024-04-25 10:34] LABS: ALT (SGPT) 23 U/L (0-50); AST (SGOT) 32 U/L (17-59); Albumin 4.4 g/dl (3.5-5.0); Alkaline Phosphatase 66 U/L (38-126); Blood Urea Nitrogen 26 mg/dl (9-20); Calcium 9.4 mg/dl (8.4-10.2); Carbon Dioxide 28 mmol/L (22-30); Chloride 100 mmol/L (98-107); Estimated Creatinine Clearance 90 ml/min; Glucose 115 mg/dl (70-99); Potassium 4.9 mmol/L (3.5-5.1); Sodium 141 mmol/L (135-145); Total Bilirubin 1.8 mg/dl (0.2-1.3); Total Protein 7.6 g/dl (6.3-8.2); eGFR > 60.00
[2024-04-25 10:48] LABS: COVID-19 Antigen Negative (Negative)
[2024-04-25 11:08] LABS: Erythrocyte Sed Rate 23 mm/hour (0-20)
[2024-04-25 11:53] LABS: INR 1.07; PT 13.7 Sec (11.4-14.6)
[2024-04-25 11:54] LABS: APTT 28.9 Sec (23.4-35.0)
[2024-04-25] MEDS: TYLENOL 325 MG PO (12:05)
--- NOTE | 2024-04-25 13:26 | HPS.HSE ---
Family Physician
-
Family Physician: Alcides Yuen
Chief Complaint
-
Swollen leg and fever
History of Present Illness
69-year-old man with a past history of hypertension, obesity, and a DVT (he is no longer on anticoagulation) presents for evaluation of fever. He had a high fever this morning to 102 �F; his other issue over the past few days has been some
increasing redness and swelling of the right leg, with pain in the right leg. He denies any headache or neck pain. Denies any chest pain, abdominal pain. No cough or shortness of breath, URI symptoms. He denies any dysuria hematuria or change in
urinary frequency. Denies any flank pain. He has had severe infections in his right leg in the past. Denies history of diabetes. He is morbidly obese with a BMI of of 47.1
Medical History
Past Medical History
Past Medical History: Reports Other
Additional Past Medical History:
essential HTN
morbid Obesity with BMI of 47
Hip replacement
Renal cyst
Adrenal adenoma, unspecified laterality
[place] syndrome
Lumbar spinal stenosis
Venous insufficiency (chronic) (peripheral)
Lumbar herniated disc
Fatty liver
Lumbar degenerative disc disease
History of superficial phlebitis
Status post total hip replacement, left
Past Surgical History: Reports Other
Additional Past Surgical History:
See above
Social History
Tobacco: Non-smoker
Alcohol: Occasional
Drug: None
Personal:
Living: With Family
Employment: Employed
Family History
Family History: Not pertinent
Allergies / Home Medications
Allergies reflects when Allergies were last updated in [facility].
Home Medications with original date entered in [facility]
Allergy/Medication List:
Allergies
Allergy/AdvReac Type Severity Reaction Status Date / Time
shellfish derived Allergy Unknown Verified 04/25/24 09:47
shrimp Allergy wheeze Verified 04/25/24 09:47
Home Medications
aspirin 81 mg tablet,delayed release 81 mg PO DAILY 12/04/23
lisinopril 20 mg-hydrochlorothiazide 12.5 mg tablet 1 tab PO DAILY 12/04/23
multivit,Ca,min-iron 8 mg-folic acid 200 mcg-lycopene 600 mcg tablet (Centrum Men) 1 tab PO DAILY 12/04/23
acetaminophen 325 mg tablet (Tylenol) 650 mg PO Q6HPRN PRN mild pain 04/25/24
Review of Systems
-
History Source: Patient
A 12 point ROS was completed and negative except as noted: Yes
Physical Exam
Vital Signs
Vital Signs
Temp Pulse Resp BP Pulse Ox
100.4 F H 106 25 138/68 94
04/25/24 11:55 04/25/24 11:45 04/25/24 11:45 04/25/24 11:28 04/25/24 11:45
Physical Exam
General: Well Developed, Well Nourished, No Apparent Distress, Comfortable, Conversant and Morbidly Obese
HEENT: NormoCephalic, Moist mucous membranes, Atraumatic, Nose Appears Normal and Ears Appear Normal
Respiratory: Clear
Cardiac: S1/S2 and Regular Rhythm
GI: Soft, Non Tender and Non Distended
Musculoskeletal: No Cyanosis, Edema, Left Upper Extremity and Edema, Right Upper Extremity (very red and swollen right LE with weeping)
Skin: Warm, Dry and Rash
Neuro: Awake, Alert, Oriented and AO x 3
Psych: Calm
Laboratory Results
-
04/25/24 09:50
04/25/24 09:49
Laboratory Results
PT 13.7 Sec (11.4-14.6) 04/25/24 11:29
INR 1.07 04/25/24 11:29
APTT 28.9 Sec (23.4-35.0) 04/25/24 11:29
Lactic Acid 1.6 mmol/L (0.7-2.0) 04/25/24 09:50
Total Bilirubin 1.8 mg/dl (0.2-1.3) H 04/25/24 09:49
AST 32 U/L (17-59) 04/25/24 09:49
ALT 23 U/L (0-50) 04/25/24 09:49
Alkaline Phosphatase 66 U/L (38-126) 04/25/24 09:49
Data Reviewed
-
Lab Data: Labs Reviewed by me
Impression/Plan
-
IMPRESSION:
69 man with swollen, infect LE in setting of obesity and venous insufficiency
WBC 16.5
Temp 100.4
BUN/Creat 26/1.0
PLAN:
1. Sepsis from LE infection
IV antibiotics
IV fluids
Close monitoring
Wound consult for eval of weeping lesions on LE
2. Morbid obesity with BMI of 47 - likely root cause of his HTN, orthopedic problems, fatty liver and venous insufficiency
Recommended Newer weight loss meds or diet as medically urgent
3. BUN/Creat ration of >20 - likely from metabolic demand
IV saline
Recheck tomorrow
4. Deconditioning from lack of movement
PT consult
Full code
SQ heparin for DVTp
[2024-04-25] MEDS: ZOSYN 100 IV ×2 (18:23→23:34)
[2024-04-25] MEDS: HEPARIN 5000 UNITS SC ×2 (18:23→23:35)
--- NOTE | 2024-04-25 18:30 | PTCARENOTE ---
Received patient from ED via stretcher. AAOx3, ambulated with assistance to bed. Assessed and oriented to room. Call bone in close reach.
[2024-04-25 18:58] LABS: Lactic Acid 1.6 mmol/L (0.7-2.0)
[2024-04-26] MEDS: TYLENOL 650 MG PO ×2 (00:02→14:20)
[2024-04-26] MEDS: NSS 1000 IV ×2 (00:04→04:31)
[2024-04-26 02:48] LABS: Urine Albumin Trace (Neg - Trace); Urine Bilirubin Negative (Negative); Urine Character Clear (Clear); Urine Color Yellow; Urine Glucose Negative (Negative); Urine Ketone Negative (Negative); Urine Leukocyte Negative (Negative); Urine Nitrite Negative (Negative); Urine Occult Blood 1+ (Negative); Urine Specific Gravity 1.015 (<1.030); Urine Urobilinogen Negative (Neg - 1+); Urine pH 6.5 (5.0-9.0)
[2024-04-26 02:57] LABS: Urine Red Blood Cell 26-30 /HPF (0-2); Urine Squamous Cell 16-20 /LPF (Few); Urine White Cell None Seen /HPF (0-5)
[2024-04-26] MEDS: ZOSYN 100 IV (05:13)
[2024-04-26 06:36] LABS: Hematocrit 38.9 % (39.0-52.0); Mean Corp Hgb Conc. 33.4 g/dL (33.0-37.0); Mean Corpuscular Volume 86.6 fL (80.0-94.0); Mean Platelet Volume 9.7 fL (7.4-10.4); Platelet Count 155 10^3/uL (130-400); Red Blood Cell Count 4.49 10^6/uL (4.70-6.10); Red Cell Dist. Width 14.1 % (11.5-14.5); White Blood Cell Count 11.3 10^3/uL (4.8-10.8)
[2024-04-26 07:01] LABS: ALT (SGPT) 29 U/L (0-50); AST (SGOT) 70 U/L (17-59); Albumin 3.3 g/dl (3.5-5.0); Alkaline Phosphatase 54 U/L (38-126); Blood Urea Nitrogen 26 mg/dl (9-20); Calcium 8.6 mg/dl (8.4-10.2); Carbon Dioxide 26 mmol/L (22-30); Chloride 105 mmol/L (98-107); Estimated Creatinine Clearance 75 ml/min; Glucose 98 mg/dl (70-99); Potassium 4.4 mmol/L (3.5-5.1); Sodium 141 mmol/L (135-145); Total Bilirubin 1.4 mg/dl (0.2-1.3); Total Protein 6.1 g/dl (6.3-8.2); eGFR > 60.00
[2024-04-26 07:25] VITALS: BP 131/67
[2024-04-26] MEDS: ORETIC 12.5 MG PO (08:16)
[2024-04-26] MEDS: ASPIR LOW (ENTERIC COATED) 81 MG PO (08:16)
[2024-04-26] MEDS: ZESTRIL 20 MG PO (08:16)
[2024-04-26] MEDS: THERAGRAN 1 TABLET PO (08:16)
[2024-04-26] MEDS: HEPARIN 5000 UNITS SC ×3 (08:17→23:01)
[2024-04-26 08:33] LABS: Glycohemoglobin (HgbA1c) 5.6 % (4.0-5.6)
[2024-04-26 09:22] VITALS: BP 132/109; BP 135/57; PULSE 64; O2SAT 98
--- NOTE | 2024-04-26 09:42 | W.PN.HOSP.TC ---
Today's Communication/Plan
-
Change antibiotics to cefazolin
Compression therapy
Stop IV fluids
Assessment / Plan
Assessment / Plan
Gen-AAOx3, NAD, morbid obesity
HEENT-NC, AT, anicteric, clear oral mm
Neck-supple
CV-reg, no M, +S1/S2
Lungs-clear B/L
Abd-soft, NT, ND
Ext-no edema
Musculoskeletal-no cyanosis, clubbing
Skin-warm and dry, diffuse right lower extremity erythema, right lateral and medial small venous stasis wounds
Neuro-grossly non-focal
Psych-calm, cooperative
Sepsis due to right lower extremity cellulitis -hemodynamically stable. Change to cefazolin. WBC count coming down. Afebrile. Stop IV fluids.
Right lower extremity cellulitis -with underlying venous stasis dermatitis. Compression therapy ordered, recommend continuing on discharge with Bentley wraps. Discussed with patient. He seems reluctant to do so and has been only using Tubigrip's at
home. Discussed importance of compression therapy for long-term prevention of recurrent cellulitis. Follow-up with the wound clinic.
Essential hypertension -stable.
[place] syndrome
Morbid obesity due to excess calories -weight loss recommended.
Full code
Anticipated Discharge: Within 24 hours
Subjective/Interval History
-
Date of Service: April 26, 2024
Patient seen and examined. No new complaints.
Objective Data
-
Labs:
Laboratory Results
04/26/24
06:01
WBC 11.3 H
Hgb 13.0
Hct 38.9 L
Plt Count 155
Sodium 141
Potassium 4.4
Chloride 105
Carbon Dioxide 26
BUN 26 H
Creatinine 1.2
Glucose 98
Calcium 8.6
Total Bilirubin 1.4 H
AST 70 H
ALT 29
Alkaline Phosphatase 54
Vital Signs:
Vital Signs
Temp Pulse Resp BP Pulse Ox
97.5 F 60 18 131/67 98
04/26/24 07:25 04/26/24 07:25 04/26/24 07:25 04/26/24 07:25 04/26/24 07:25
I&O
04/25/24 04/26/24 04/27/24
07:59 06:59 06:59
Intake Total
Output Total
Balance
Review of Systems
-
History Source: Patient
All other systems: Reviewed and negative
[2024-04-26] MEDS: NSS IV (09:49)
[2024-04-26] MEDS: ANCEF 10 IV ×2 (10:07→17:04)
--- NOTE | 2024-04-26 12:57 | CM ---
CM following re: discharge planning.
Reviewed pt's chart, met with pt.
Pt is a 69 year old male, admitted with primary dx of Cellulitis.
Pt reports he lives with spouse 1SH, rananne marie, no steps, there is a ramp. Pt reports he has supportive stepson. Pt reports he ambulates with a walker at baseline, family helps as needed.
PCP: Alcides Yuen
[facility]
D/C plan: home with anticipated no needs. Family to transport at discharge.
CM will follow with discharge plan updates as hospitalization progresses
[2024-04-26 15:20] VITALS: BP 124/62
[2024-04-26 23:47] VITALS: BP 138/75
[2024-04-27] MEDS: ANCEF 10 IV ×2 (01:18→09:35)
[2024-04-27 07:35] VITALS: BP 121/75
[2024-04-27] MEDS: HEPARIN 5000 UNITS SC (09:35)
[2024-04-27] MEDS: ORETIC 12.5 MG PO (09:35)
[2024-04-27] MEDS: ASPIR LOW (ENTERIC COATED) 81 MG PO (09:35)
[2024-04-27] MEDS: ZESTRIL 20 MG PO (09:35)
[2024-04-27] MEDS: THERAGRAN 1 TABLET PO (09:35)
[2024-04-27] MEDS: FLUSH (NSS) 2 FLUSH IV (09:36)
[2024-04-27] MEDS: FLUSH (NSS) 1 FLUSH IV (09:37)
--- NOTE | 2024-04-27 11:04 | WOUNDNOTE ---
[facility] RN NOTE: Reviewed chart and spoke to patients DENIS Stoner. Patient admitted with right leg cellulitis. Per RN Georgiana patient had a small draining area on right LE which she recently dressed with adaptic and ABD and wrapped with HAO per order.
Spoke to patient who reports using compression pumps daily and wearing compression daily. He has gone to [facility] in the past and denies need for more care at [facility] at this time. Plan is for discharge home today.
--- NOTE | 2024-04-27 12:06 | W.PN.HOSP.TC ---
Today's Communication/Plan
-
dc home on Keflex/Doxy and PCP f/u in 1 week
Assessment / Plan
Assessment / Plan
Assessment:
Sepsis due to right lower extremity cellulitis -hemodynamically stable. improving with Ancef. WBC count coming down. Afebrile. DC on Keflex/doxy x 10 total days
Right lower extremity cellulitis -with underlying venous stasis dermatitis. Compression therapy ordered, recommend continuing on discharge with Bentley wraps. Discussed with patient. He seems reluctant to do so and has been only using Tubigrip's at
home. Discussed importance of compression therapy for long-term prevention of recurrent cellulitis. Follow-up with the wound clinic.
Essential hypertension -stable.
[place] syndrome
Morbid obesity due to excess calories -weight loss recommended.
Full code
More than 30 minutes spent in discharge including
Final examination of the patient
Summarizing hospital stay
Instructions for continuing care to all relevant caregivers
Preparation of discharge records, prescriptions, and referral forms
Total time spent (in minutes):41
Anticipated Discharge: Today
Subjective/Interval History
-
Date of Service: April 27, 2024
reports less leg redness, less pain and edema
Objective Data
-
Vital Signs:
Vital Signs
Temp Pulse Resp BP Pulse Ox
97.6 F 65 20 121/75 97
04/27/24 07:35 04/27/24 07:35 04/27/24 07:35 04/27/24 07:35 04/27/24 07:35
I&O
04/26/24 04/27/24 04/28/24
06:59 06:59 06:59
Intake Total 1200 / 1200
Output Total
Balance 1200 / 1200
Physical Exam
-
General: No Apparent Distress
HEENT: Normocephalic and Atraumatic
Respiratory: Negative Wheezes or Rales
Cardiac: Regular Rhythm and S1/S2
GI: Soft and Nontender
Skin: Other (RLE with venous stasis, minimal edema)
Neuro: AO x 3
Hematologic / Lymphatic: No Lymphadenopathy
Psych: Calm
Data Reviewed
-
Total Time Spent with Patient (in minutes): 45
Labs: Labs Reviewed by me
--- NOTE | 2024-04-27 12:18 | W.DS.TRANS ---
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
-
Discharge Instructions:
Discharge Diagnosis/Procedures RLE cellulitis with venous stasis dermatitis
Diet Regular
Activity As tolerated
Bathing Restrictions None
Other Services PT,OT
Instructions:
Stand-Alone Forms:
Changes to Home Medications: No
Discharge Medications:
DC Medications w/original date entered in [facility]
aspirin 81 mg tablet,delayed release 81 mg PO DAILY Blood Clot Prevention/Tx 12/04/23
lisinopril 20 mg-hydrochlorothiazide 12.5 mg tablet 1 tab PO DAILY Blood Pressure 12/04/23
multivit,Ca,min-iron 8 mg-folic acid 200 mcg-lycopene 600 mcg tablet (Centrum Men) 1 tab PO DAILY Supplement 12/04/23
acetaminophen 325 mg tablet (Tylenol) 650 mg PO Q6HPRN PRN mild pain 04/25/24
cephalexin 500 mg capsule 500 mg PO QID 10 days #40 caps 04/27/24
doxycycline hyclate 100 mg capsule 100 mg PO BID 10 days #20 caps 04/27/24
Home Medication Changes
Pending Results: No
Total time spent discharging patient (in min): 41
--- NOTE | 2024-04-27 15:58 | CM ---
Late note: BELTRAN met with Alcides at bedside to discuss VN services. He did not feel it was necessary and declined VN. Dr. Zimmerman notified of same at 12:27pm via tiger text.
Alcides was discharged to home with his , Mera.
Plan: Discharge to home with no needs.
[2024-04-27 19:16] LABS: Hepatitis C Antibody Negative (Negative)
== END 2024-04-27 13:57 | disposition home or self-care (01) | DRG 872 ==
LOC: 4 EAST ACU 14:02
PROVIDERS: ADMITTING PHYSICIAN Internal Medicine; ATTENDING PHYSICIAN Internal Medicine; EMERGENCY PHYSICIAN Emergency Medicine; FAMILY PHYSICIAN Family Medicine
DX: A41.9 Sepsis, unspecified organism (principal); L03.115 Cellulitis of right lower limb; Z68.42 Body mass index [BMI] 45.0-49.9, adult; E66.01 Morbid (severe) obesity due to excess calories; I10 Essential (primary) hypertension; K76.0 Fatty (change of) liver, not elsewhere classified; D35.00 Benign neoplasm of unspecified adrenal gland; E80.4 Gilbert syndrome; I87.2 Venous insufficiency (chronic) (peripheral); M48.061 Spinal stenosis, lumbar region without neurogenic claudication; M51.26 Other intervertebral disc displacement, lumbar region; M51.369 Other intervertebral disc degeneration, lumbar region without mention of lumbar back pain or lower extremity pain; N28.1 Cyst of kidney, acquired; Z86.72 Personal history of thrombophlebitis; Z96.642 Presence of left artificial hip joint
CPT/HCPCS: 73590; 80053; 81003; 81015; 83036; 83605; 85025; 85027; 85610; 85652; 85730; 86140; 86803; 87040; 87502; 87811; 93971; 96361; 96374; 97162; 97530; 99285

== ENCOUNTER 2024-06-05 23:39 | Inpatient (IN) | payer OTHER, MEDICARE, SELFPAY ==
[2024-06-05] VITALS (18 sets, daily range): BP systolic 78–138; BP diastolic 25–71
[2024-06-05 20:55] LABS: % Basophils 0.3 % (0-2); % Eosinophils 1.1 % (0-6); % Immature Granulocytes 0.3 % (0-0.5); % Lymphocytes 4.7 % (20.5-51.1); % Monocytes 5.3 % (1.7-9.3); % Neutrophils 88.3 % (42.2-75.2); Absolute Eosinophils 0.2 10^3/uL (0-0.7); Absolute Lymphocytes 0.6 10^3/uL (1.2-3.4); Absolute Monocytes 0.7 10^3/uL (0.1-0.6); Absolute Neutrophils 11.6 10^3/uL (1.4-6.5); Hematocrit 44.3 % (39.0-52.0); Hemoglobin 14.4 g/dL (13.0-18.0); Mean Corp Hgb Conc. 32.5 g/dL (33.0-37.0); Mean Corpuscular Volume 89.1 fL (80.0-94.0); Mean Platelet Volume 9.3 fL (7.4-10.4); Nucleated Red Blood Cells % 0 % (-); Platelet Count 181 10^3/uL (130-400); Red Blood Cell Count 4.97 10^6/uL (4.70-6.10); Red Cell Dist. Width 14.7 % (11.5-14.5); White Blood Cell Count 13.1 10^3/uL (4.8-10.8)
--- NOTE | 2024-06-05 21:06 | ED.GENMED ---
Addendum entered and electronically signed by Basil Ayon DO 06/05/24 22:18:
Update, prior to discharge patient reevaluated blood pressure in the low 90s at this point I believe will be prudent to start fluids keep in the hospital
Original Note:
History of Present Illness
General
Chief Complaint: Fever
Source: patient and records
Exam Limitations: none
Time Seen by Provider: 06/05/24 20:41
Nursing documentation reviewed up to this point in time: agreed with
History of Present Illness
History of Present Illness:
69-year-old male hypertension recurrent cellulitis venous stasis presents with fever 1O2, not currently on antibiotics no chest pain no shortness of breath no nausea vomiting abdominal pain has been admitted with sepsis due to cellulitis previously
at that time he tells me his temperature was 106
Past History
Past History
ED Past Medical History: HTN and Other (Obesity)
ED Past Surgical History: Orthopedic
Social History
Tobacco: Non-smoker
Alcohol: Occasional
Drug: None
Personal:
Living: with family
Employment: Retired
Family History
Family History: Other
Review of Systems
Review of Systems
All Other Systems: Not applicable
Constitutional: Reports fever; Denies fatigue
EENT: Reports no symptoms
Respiratory: Reports no symptoms
Cardiac: Reports no symptoms
ABD/GI: Reports no symptoms; Denies nausea or vomiting
: Reports no symptoms
Skin: Reports other (Redness warmth right lower extremity improving)
Neurological: Reports no symptoms
Phy Exam
Physical Exam
Physical Exam:
Physical Exam
General: no apparent distress, not acutely ill
Neck: No jaundice
Heart: s1/s2 regular rate and rhythm, no murmur. equal radial pulses.
Lungs: no acute respiratory distress. clear bilaterally
Abdomen: Nontender
Neuro: alert and oriented. no focal neurological deficits
Skin: no rash
Psychiatric: well kept. interactive and cooperative
Extremities: Right lower extremity venous stasis changes with warmth superimposed cellulitic changes
Course
Orders/Labs/Results
Orders:
Orders
06/05/24 20:48
CBC/With Diff [Complete Blood Count/With Diff] Urgent
CMP [Comprehensive Metabolic Panel] Urgent
COVID-19 Antigen Urgent
Source: Nasal Swab
Influenza A+B Rapid Molecular Urgent
BETHEL Source: Nasal Swab
Specimen Description:
06/05/24 20:55
CeFAZolin 2 GRAM [Ancef] 2 grams in 10 ml IV NOW
CR Chest - 2 Views Urgent
Comment:
Reason For Exam: fever
06/05/24 21:48
Ibuprofen [Motrin] 600 mg PO NOW STA
Abnormal Lab Results
06/05/24
20:48
WBC 13.1 H 10^3/uL
(4.8-10.8)
MCHC 32.5 L g/dL
(33.0-37.0)
RDW 14.7 H %
(11.5-14.5)
Absolute Neuts (auto) 11.6 H 10^3/uL
(1.4-6.5)
Absolute Lymphs (auto) 0.6 L 10^3/uL
(1.2-3.4)
Absolute Monos (auto) 0.7 H 10^3/uL
(0.1-0.6)
Neutrophils % 88.3 H %
(42.2-75.2)
Lymphocytes % 4.7 L %
(20.5-51.1)
BUN 37 H mg/dl
(9-20)
Glucose 122 H mg/dl
(70-99)
06/05/24 20:48
06/05/24 20:48
Vital Signs
Initial and Last Documented VS:
Initial Vital Signs
Temp Pulse Resp Pulse Ox
98.3 F 88 20 94
06/05/24 20:37 06/05/24 20:37 06/05/24 20:37 06/05/24 20:37
Last Documented Vital Signs
Temp Pulse Resp BP Pulse Ox
98.3 F 94 20 95/48 95
06/05/24 20:37 06/05/24 21:47 06/05/24 21:47 06/05/24 21:46 06/05/24 21:47
MDM/Problems Addressed
Differential Diagnosis Includes:
Cellulitis, venous stasis, fungal, doubt DVT doubt pneumonia or viral syndrome
MDM/Problems Addressed:
Fever recurrent cellulitis
Chronic conditions affecting care:
Recurrent cellulitis
Acute Exacerbation and/or Progression of Chronic Illness:
Recurrent cellulitis
*Critical Care Note
Total Time (30-74mins, 75-104mins- exclusive of procedures): Not Applicable
Update Note
Update Note:
Update labs noted x-ray noted patient remains hemodynamically stable appears to be candidate for outpatient therapy
ED Attending Note
-
Portions of this chart may have been created with voice recognition software.� Occasional wrong word or��sound alike� substitutions may have occurred due to the inherent limitations of voice recognition software.
Discharge Plan
Departure
Patient Disposition: Home (Routine Discharge)
Date of Disposition: 06/05/24
Time of Disposition: 22:05
Patient with high blood pressure during this ER visit?: No
Condition: Good
Covid-19: Negative COVID-19
Discharge Problem:
Cellulitis, Cellulitis of right lower extremity
Instructions: Cellulitis (skin infection) in adults - ED discharge instructions
Prescriptions:
New
cephalexin 750 mg capsule
750 mg PO Q6H 10 Days Qty: 40 0RF
No Action
lisinopril-hydrochlorothiazide 20-12.5 mg Tablet
1 tab PO DAILY
aspirin 81 mg Tablet,Delayed Release (Dr/Ec)
81 mg PO DAILY
Centrum Men 8 mg iron- 200 mcg-600 mcg Tablet
1 tab PO DAILY
acetaminophen [Tylenol Extra Strength] 500 mg Tablet
1,000 mg PO Q6HPRN PRN (Reason: mild pain/fever)
turmeric 400 mg Capsule
800 mg PO DAILY
Referrals:
UNKNOWN - PT DOES,NOT KNOW [Family Provider] -
Activity Restrictions/Additional Instructions:
Antibiotics as prescribed Tylenol as needed for fever, return to the ER for worsening symptoms
Interventions
Interventions:
*Risk Screen - Suicide Last Done: 06/05/24 20:37
*General Assessment Last Done: 06/05/24 20:37
*Neglect/Abuse Screening Last Done: 06/05/24 20:37
*ED COVID-19 Vaccine History Last Done: 06/05/24 21:52
ED- Neurological Assessment Last Done: 06/05/24 21:52
ED-Skin Assessment Last Done: 06/05/24 21:52
Discharge Date and Time
Print Language: CONGOLESE
[2024-06-05 21:10] LABS: ALT (SGPT) 21 U/L (0-50); AST (SGOT) 29 U/L (17-59); Albumin 4.5 g/dl (3.5-5.0); Alkaline Phosphatase 54 U/L (38-126); Blood Urea Nitrogen 37 mg/dl (9-20); Calcium 9.3 mg/dl (8.4-10.2); Carbon Dioxide 30 mmol/L (22-30); Chloride 99 mmol/L (98-107); Estimated Creatinine Clearance 88 ml/min; Glucose 122 mg/dl (70-99); Potassium 4.3 mmol/L (3.5-5.1); Sodium 139 mmol/L (135-145); Total Protein 7.8 g/dl (6.3-8.2); eGFR > 60.00
[2024-06-05 21:18] LABS: COVID-19 Antigen Negative (Negative)
[2024-06-05] MEDS: ANCEF 10 IV (21:40)
[2024-06-05] MEDS: MOTRIN 600 MG PO (21:50)
[2024-06-05] MEDS: NSS 1900 ML IV (22:46)
[2024-06-05 23:03] LABS: Lactic Acid 1.5 mmol/L (0.7-2.0)
--- NOTE | 2024-06-05 23:18 | HPS.HSE ---
Family Physician
-
Family Physician: NOT KNOW UNKNOWN - PT DOES
Chief Complaint
-
Fever, Confusion
History of Present Illness
Patient is a 69y M with PMH significant for morbid obesity, chronic venous stasis and recurrent cellulitis who presents to ED for evaluation of fever and confusion. History obtained from patient and his at the bedside. Patient was recently
admitted to ED for cellulitis 04/25 - 04/27. He was discharged on oral antibiotics and was maintained on Keflex as an outpatient until about 2 weeks ago. Patient states that his RLE redness and swelling has continued to gradually improve. He
denies any new symptoms of pain, swelling, worsening redness, discharge, etc.
His monitors his temperature routinely at home - several times per day.
Today she noted he had a temp of 99 followed by a later temp of 102. They called their PCP who recommended ED evaluation.
Patient denies any other current complaints or concerns. notes that he has seemed 'not himself' throughout the day today - consistent with his prior episodes of fever / sepsis.
Medical History
Past Medical History
Past Medical History: Reports Other
Additional Past Medical History:
HTN
Morbid Obesity
Renal cyst
Adrenal adenoma
Gilbert's syndrome
Lumbar spinal stenosis
Venous insufficiency
Lumbar degenerative disc disease
History of superficial phlebitis / DVT
Past Surgical History: Reports Other
Additional Past Surgical History:
Left KESHAV
Left Hip ORIF (14 yo)
Social History
Tobacco: Non-smoker
Alcohol: Occasional
Drug: None
Personal:
Living: With Family
Employment: Employed
Family History
Family History: Not pertinent
Allergies / Home Medications
Allergies reflects when Allergies were last updated in [employer].
Home Medications with original date entered in [employer]
Allergy/Medication List:
Allergies
Allergy/AdvReac Type Severity Reaction Status Date / Time
shellfish derived Allergy Unknown Verified 04/25/24 09:47
shrimp Allergy wheeze Verified 04/25/24 09:47
Home Medications
aspirin 81 mg tablet,delayed release 81 mg PO DAILY Blood Clot Prevention/Tx 12/04/23
lisinopril 20 mg-hydrochlorothiazide 12.5 mg tablet 1 tab PO DAILY Blood Pressure 12/04/23
multivit,Ca,min-iron 8 mg-folic acid 200 mcg-lycopene 600 mcg tablet (Centrum Men) 1 tab PO DAILY Supplement 12/04/23
acetaminophen 500 mg tablet (Tylenol Extra Strength) 1,000 mg PO Q6HPRN PRN mild pain/fever 06/05/24
cephalexin 750 mg capsule 750 mg PO Q6H 10 days #40 caps 06/05/24
turmeric 400 mg capsule 800 mg PO DAILY 06/05/24
Review of Systems
-
History Source: Patient and Family
A 12 point ROS was completed and negative except as noted: Yes
Constitutional: Reports Fever and Fatigue; Denies Chills
EENT: Denies Sore Throat
Respiratory: Denies Cough or Trouble Breathing
Cardiac: Denies Chest Pain or Palpitations
Abdomen/GI: Denies Abdominal Pain, Nausea, Vomiting or Diarrhea
: Reports Incontinence; Denies Dysuria, Frequency, Flank Pain, Urgency or Bleeding
Musculoskeletal: Reports Edema; Denies Joint Pain
Skin: Reports Rash and Other (Redness / weeping.)
Neurological: Denies Dizzy or Headache
Psych: Denies Depression or Anxiety
Physical Exam
Vital Signs
Vital Signs
Temp Pulse Resp BP Pulse Ox
100.9 F H 83 15 84/43 87
06/05/24 21:45 06/05/24 23:00 06/05/24 23:00 06/05/24 22:40 06/05/24 23:00
Physical Exam
General: Other (Flushed appearing 69y M in no acute distress.)
HEENT: Other (Dry MM. Thick neck.)
Respiratory: Other (Decreased BS at bases - otherwise clear.)
Cardiac: S1/S2 and Regular Rhythm; No Murmur
GI: Non Tender, Non Distended, Normal Bowel Sounds and Other (Obese.)
Musculoskeletal: No Clubbing and Other (Erythema and increased warmth RLE from the mid-pederson to the ankle. Increased warmth. Mild serous oozing circumferentially. No ulcerations. LLE with chronic stasis changes - no erythema or increased warmth.)
Neuro: AO x 3
Laboratory Results
-
06/05/24 20:48
06/05/24 20:48
Laboratory Results
Lactic Acid 1.5 mmol/L (0.7-2.0) 06/05/24 22:44
Total Bilirubin 1.0 mg/dl (0.2-1.3) 06/05/24 20:48
AST 29 U/L (17-59) 06/05/24 20:48
ALT 21 U/L (0-50) 06/05/24 20:48
Alkaline Phosphatase 54 U/L (38-126) 06/05/24 20:48
Impression/Plan
-
A/P: Patient is a 69y M with PMH significant for morbid obesity, chronic venous insufficiency and hypertension who presents to ED complaining of fever.
RLE Cellulitis - Recurrent
Sepsis secondary to the above
Chronic Venous Insufficiency
- Admit for further evaluation and treatment.
- Patient presents with fever (102 at home), leukocytosis and tachycardia with RLE exam findings c/w cellulitis.
- Similar prior admissions - most recently 04/25 - 04/27.
- Continue IV abx and follow-up any culture data.
- ID evaluation for additional recommendations.
- IVF support +/- pressors as needed to maintain perfusion.
- Wound Care eval for LE superficial excoriations / weeping / etc.
- Follow for clinical improvement.
- ? successful strategies to decrease frequency of episodes?
Benign Hypertension
- Currently hypotensive secondary to acute infection / sepsis.
- Hold antihypertensive medications.
Morbid Obesity secondary to excess calories
- Affects all aspects of care, including chronic venous stasis / ongoing risk of recurrent infection.
- Encourage continued efforts at healthy diet / increased activity with goal of weight loss.
DVT Prophylaxis: Lovenox
Code Status: Full
[2024-06-05] MEDS: LEVOPHED 250 IV (23:33)
[2024-06-06] VITALS (17 sets, daily range): BP systolic 100–151; BP diastolic 47–100; BMI 45.6
[2024-06-06] MEDS: LR 1000 IV ×3 (00:53→17:04)
--- NOTE | 2024-06-06 01:19 | PTCARENOTE ---
received patient from ED without issue. Patient is on room air and sating in high 90s. NSR on monitor. Patient right leg is swollen, red and weepy, left leg is PVD brown. Patient in on levophed drip at 2 mcg/min with a current MAP of 80. LR also
running at 125. Patient Aox3 and resting in bed, ringing call bone appropriately. Assessment and VS as documented.
--- NOTE | 2024-06-06 01:29 | PTCARENOTE ---
Patient O2 level dropped to 85% while sleeping, 2L NC placed on patient. Now sating in mid s.
[2024-06-06] MEDS: ANCEF 10 IV ×3 (05:13→21:59)
[2024-06-06 06:15] LABS: Hematocrit 37.6 % (39.0-52.0); Hemoglobin 12.6 g/dL (13.0-18.0); Mean Corp Hgb Conc. 33.5 g/dL (33.0-37.0); Mean Corpuscular Hgb 29.5 pg (27.0-31.0); Mean Corpuscular Volume 88.1 fL (80.0-94.0); Mean Platelet Volume 10.1 fL (7.4-10.4); Platelet Count 160 10^3/uL (130-400); Red Blood Cell Count 4.27 10^6/uL (4.70-6.10); Red Cell Dist. Width 14.6 % (11.5-14.5); White Blood Cell Count 11.3 10^3/uL (4.8-10.8)
[2024-06-06 06:21] LABS: Blood Urea Nitrogen 30 mg/dl (9-20); Calcium 8.2 mg/dl (8.4-10.2); Carbon Dioxide 24 mmol/L (22-30); Chloride 106 mmol/L (98-107); Estimated Creatinine Clearance 110 ml/min; Glucose 97 mg/dl (70-99); Potassium 3.7 mmol/L (3.5-5.1); Sodium 139 mmol/L (135-145); eGFR > 60.00
[2024-06-06 06:49] LABS: TSH Reflex To Free T4 0.28 uIU/ml (0.47-4.68)
[2024-06-06] MEDS: VIBRAMYCIN 100 MG PO (09:24)
[2024-06-06] MEDS: ASPIR LOW (ENTERIC COATED) 81 MG PO (09:24)
--- NOTE | 2024-06-06 10:07 | CM ---
Pt seen bedside. Initial assessment completed.
Pt lives w/ spouse in a rancher home-no steps to enter.
Pt uses a walker and cane for ambulation.
Denies SNF/VN/PT hx. Pt engaged in OP therapy after hip replacement
Address, point of contact and insurance verified.
PCP: Dr. Yuen
Pharmacy: [facility]
Plan: CM will cont. to follow hospital course for d/c planning
--- NOTE | 2024-06-06 10:22 | CON.ID ---
Consultation
-
Date/Time Consultation Requested: June 06, 2024 0020
Date/Time Consultation Performed: June 06, 2024 1025
Requesting Provider: Dr. Kirk Holland
Performing Provider: Dr. Alecia Roman
Reason for Consultation: Sepsis, cellulitis
Chief Complaint / Past History
Chief Complaint
Fever
History of Present Illness
68-year-old male with class III obesity, venous stasis, cellulitis who presented to the hospital June 05 with his third episode of fever and right lower extremity cellulitis. He was hospitalized in December 03 to and April 25April with
right lower extremity cellulitis. Both times he was discharged on cephalexin and doxycycline. He had follow-up with his PCP who extended the cephalexin and doxycycline which he completed approximately May 21. His right leg erythema did
improve. Patient has been taking his temperature regularly. Yesterday his temperature went up to 102. Patient noted to be weak and had decreased mental status. He came back to the hospital. Temperature 100.9. White count 13.1. Right leg
noted to be erythematous. He was started on cefazolin and oral doxycycline. Patient reports he did have chills with the fever at home. He is feeling better now. He is compliant with compression with Tubigrip's, compression stockings and the
lymphedema circulating machine at night. He applies moisturizer to his leg. He denies any other symptoms of headache, rhinorrhea, sore throat, cough, shortness of breath, nausea, vomiting, abdominal pain, diarrhea or urinary symptoms. No ill
contacts
Past History
Additional Past Medical History:
Hypertension
Class III obesity BMI 46
Chronic left lower extremity venous stasis wounds
LE cellulitis
History of DVT
Gilbert's syndrome
Left total hip replacement
Left hip ORIF
Allergy History:
shellfish derived Allergy (Verified 04/25/24 09:47)
Unknown
shrimp Allergy (Verified 04/25/24 09:47)
wheeze
Medications Reviewed: Yes
Current Antibiotics:
doxycycline
Cefazolin
Social History
Tobacco: Non-Smoker
Alcohol: None
Drug: None
Personal:
Family History
Family History: Not Pertinent
Review of Systems
Review of Systems
General: Chills; Negative Change in Appetite
HEENT: Negative Stiff Neck, Sinus Problems, Headache or Pharyngitis
Cardiovascular: Negative Chest Pain or Dyspnea
Respiratory: Negative Dyspnea or Cough
Gasteroenterology: Negative Nausea, Vomiting or Diarrhea
Genital / Urological: Negative Dysuria or Flank Pain
Endocrine: Weakness
Neurological: Negative Dizziness
All systems: All other systems were reviewed and were negative
Vital Signs
Temp Pulse Resp BP Pulse Ox
97.7 F 52 18 123/71 96
06/06/24 07:50 06/06/24 07:00 06/06/24 07:00 06/06/24 06:11 06/06/24 07:00
Selected Entries
06/05/24
21:45
Temp 100.9 F H
Physical Exam
Physical Exam
Constitutional: No Acute Distress, Comfortable and Obese
Eyes: No Conjunctival Hemorrhage and Sclera Anicteric
Cardiovascular: Regular Rate and S1/S2
Pulmonary: Clear
Gastrointestinal: Soft, Non Tender, Non Distended and Normal Bowel Sounds
Extremities: Edema (BLE lymphedema), Erythema (RLE pink erythema from medial ankle up the pederson and calf to below knee, + dry skin), Pulses (Good dorsalis pedal pulses right foot) and Venous Insufficiency (BLE)
Neurological: AO x 3
Lab / Diagnostic Study Results
06/06/24 05:24
06/06/24 05:24
Abs Immat Gran (auto) 0.0 10^3/uL (0-0.05) 06/05/24 20:48
Absolute Neuts (auto) 11.6 10^3/uL (1.4-6.5) H 06/05/24 20:48
Absolute Lymphs (auto) 0.6 10^3/uL (1.2-3.4) L 06/05/24 20:48
Absolute Monos (auto) 0.7 10^3/uL (0.1-0.6) H 06/05/24 20:48
Absolute Basos (auto) 0.0 10^3/uL (0-0.2) 06/05/24 20:48
Immature Gran % 0.3 % (0-0.5) 06/05/24 20:48
Neutrophils % 88.3 % (42.2-75.2) H 06/05/24 20:48
Lymphocytes % 4.7 % (20.5-51.1) L 06/05/24 20:48
Monocytes % 5.3 % (1.7-9.3) 06/05/24 20:48
Eosinophils % 1.1 % (0-6) 06/05/24 20:48
Basophils % 0.3 % (0-2) 06/05/24 20:48
Lactic Acid Cancelled 06/06/24 02:30
Microbiology Results
Micro:
06/05/24 22:44 Blood Culture - Pending
Blood/Venous
06/05/24 20:48 Influenza Types A & B (ASH) - Final
Nasal Swab Negative for Influenza A & B, NAAT
Negative results must be combined with clinical observations
and patient history.
Nucleic Acid Amplification test (NAAT)performed on the
[employer] platform.
06/05/24 CXR: Mild cardiomegaly. No findings to suggest pneumonia.
Assessment / Plan
# Recurrent RLE non-purulent cellulitis
# Fever
# Leukocytosis
# Venous stasis - compliant with compression
- Continue cefazolin
-DC doxycycline
- Moisturize leg
- HAO-WRAP compression
- Follow temps. wbc, bcx
# Conditions STATISTICIAN APPLIED
Hypertension
Class III obesity BMI 46
Chronic left lower extremity venous stasis wounds
LE cellulitis
History of DVT
Gilbert's syndrome
Left total hip replacement
Left hip ORIF
[2024-06-06 10:35] LABS: Urine Albumin Negative (Neg - Trace); Urine Bilirubin Negative (Negative); Urine Character Clear (Clear); Urine Color Yellow; Urine Glucose Negative (Negative); Urine Ketone Negative (Negative); Urine Leukocyte Trace (Negative); Urine Nitrite Negative (Negative); Urine Occult Blood Negative (Negative); Urine Urobilinogen Negative (Neg - 1+)
[2024-06-06 11:31] LABS: Urine Bacteria Few (Negative); Urine Red Blood Cell 0-2 /HPF (0-2)
--- NOTE | 2024-06-06 13:25 | W.PN.HOSP.TC ---
Today's Communication/Plan
-
Discontinue doxycycline, continue with IV cefazolin
Follow-up blood cultures
Hold antihypertensives for now
Assessment / Plan
Assessment / Plan
#Sepsis secondary to recurrent cellulitis
#Nonpurulent cellulitis of RLE
#Chronic venous insufficiency
-Presented with fever, leukocytosis, tachycardia; erythematous, warm, tender right calf
-Has had multiple recurrences of cellulitis to this area as well as to the LLE
-No purulence noted, states he does have some watery discharge at time
-Was started on antibiotic regimen of cefazolin and doxycycline; ID stopped Doxy today
Plan
-Continue IV cefazolin every 8 hours, follow-up blood cultures
-Start Bentley wrap of the lower extremity for reduction of CDI
-Trend CBC and temperature curve
-Monitor leg clinically
#Hypertension
-Home medications include lisinopril hydrochlorothiazide combination tablet
-No known history of hypertensive systemic disease
-Blood pressure soft on arrival BP meds held
-Continue to monitor vitals and resume antihypertensives as needed
#Gilbert's disease
-Chronic, T. bili was normal on arrival here
#Adrenal adenoma
-Per history, does not appear to be hormonally active
-Should have follow-up as outpatient
#Morbid obesity
-Affects all aspects of care
-Encourage dietary modification and exercise as tolerated
DVT prophylaxis: Lovenox
Diet: Regular
CODE STATUS: Full code
Anticipated Discharge: > 48 hours
Subjective/Interval History
-
Date of Service: June 06, 2024
Seen and examined at the bedside. No acute events reported overnight. AFVSS this morning
Vasopressors were ordered though never required. Hemodynamically stable as of this morning without Levophed
He denies any acute complaints. States he has had this infection to his RLE multiple times, denies any purulence. No fevers as of this morning
Objective Data
-
Labs:
Laboratory Results
06/06/24
05:24
WBC 11.3 H
Hgb 12.6 L
Hct 37.6 L
Plt Count 160
Sodium 139
Potassium 3.7
Chloride 106
Carbon Dioxide 24
BUN 30 H
Creatinine 0.8
Glucose 97
Calcium 8.2 L
Vital Signs:
Vital Signs
Temp Pulse Resp BP Pulse Ox
98.4 F 52 18 123/71 96
06/06/24 11:50 06/06/24 07:00 06/06/24 07:00 06/06/24 06:11 06/06/24 07:00
Review of Systems
-
History Source: Patient
All other systems: Reviewed and negative
Physical Exam
-
General: Well Developed, No Apparent Distress, Comfortable and Morbidly Obese
HEENT: Normocephalic, Atraumatic, Moist Mucous Membranes and Anicteric
Respiratory: Clear to Auscultation and Non Labored Respirations; Negative Wheezes, Rales or Rhonchi
Cardiac: Regular Rhythm and S1/S2; Negative Murmur, Rub or Gallop
GI: Soft, Nontender, Nondistended and Normal Bowel Sounds
Musculoskeletal: No Clubbing, No Cyanosis and No Edema
Skin: Warm, Dry, Normal Turgor and Other (Erythematous, warmth, tenderness to palpation of distal RLE without sharp demarcation)
Neuro: AO x 3, Nonfocal/Grossly Intact and Central Nerve's Intact
Hematologic / Lymphatic: No Lymphadenopathy
Psych: Calm
Data Reviewed
-
Labs: Labs Reviewed by me and Discussed with Patient
[2024-06-06] MEDS: LAC HYDRIN, AM LACTIN LOTION 1 APPLIC TOPICAL ×2 (13:29→19:45)
[2024-06-06] MEDS: FLUSH (NSS) 1 FLUSH IV (13:30)
--- NOTE | 2024-06-06 16:22 | PTCARENOTE ---
Orders noted to transfer to telemetry. Patient update on plan of care. BP stable since assuming care at 0700. Bentley wrap on RLE as ordered. Able to ring appropriately and ambulates into bathroom w/ own crutches and assistance x1. Encouraged to
continue to make needs known.
[2024-06-06] MEDS: LOVENOX 40 MG SC (17:04)
[2024-06-07] VITALS (13 sets, daily range): BP systolic 131–173; BP diastolic 67–83; PULSE 73; O2SAT 99; BMI 45.9
--- NOTE | 2024-06-07 00:25 | PTCARENOTE ---
Caring for pt overnight. aaox3 agitated at times, laughing at education given to him. Pt states he wants to go home. IVF &ivabx given. VSS. afebrile. Continues on tele, NSR/SB. OOB in chair, requested to sleep in chair. OOB to BR with crutches, once
on his feet he was steady but getting situated and standing up was more of a challenge. Incontinent urine. NO other issues at this time. will monitor.
[2024-06-07] MEDS: LR 1000 IV (00:33)
[2024-06-07] MEDS: ANCEF 10 IV ×3 (06:17→21:32)
[2024-06-07 06:18] LABS: % Basophils 0.2 % (0-2); % Eosinophils 1.4 % (0-6); % Immature Granulocytes 0.2 % (0-0.5); % Lymphocytes 11.7 % (20.5-51.1); % Monocytes 8.7 % (1.7-9.3); % Neutrophils 77.8 % (42.2-75.2); Absolute Eosinophils 0.1 10^3/uL (0-0.7); Absolute Monocytes 0.7 10^3/uL (0.1-0.6); Absolute Neutrophils 6.5 10^3/uL (1.4-6.5); Hematocrit 41.2 % (39.0-52.0); Hemoglobin 13.5 g/dL (13.0-18.0); Mean Corp Hgb Conc. 32.8 g/dL (33.0-37.0); Mean Corpuscular Hgb 29.5 pg (27.0-31.0); Mean Platelet Volume 9.9 fL (7.4-10.4); Nucleated Red Blood Cells % 0 % (-); Platelet Count 155 10^3/uL (130-400); Red Blood Cell Count 4.58 10^6/uL (4.70-6.10); Red Cell Dist. Width 14.8 % (11.5-14.5); White Blood Cell Count 8.4 10^3/uL (4.8-10.8)
[2024-06-07 06:37] LABS: Blood Urea Nitrogen 21 mg/dl (9-20); Calcium 8.8 mg/dl (8.4-10.2); Carbon Dioxide 25 mmol/L (22-30); Chloride 106 mmol/L (98-107); Estimated Creatinine Clearance 111 ml/min; Glucose 91 mg/dl (70-99); Sodium 139 mmol/L (135-145); eGFR > 60.00
[2024-06-07] MEDS: ASPIR LOW (ENTERIC COATED) 81 MG PO (08:39)
[2024-06-07] MEDS: LAC HYDRIN, AM LACTIN LOTION 1 APPLIC TOPICAL ×2 (08:39→21:32)
--- NOTE | 2024-06-07 09:34 | W.PN.ID1 ---
Date of Service
Date of Service: June 07, 2024
Today's Communication
Will benefit from additional IV antibiotic prior to dc.
Assessment / Plan
# Recurrent RLE non-purulent cellulitis
# Fever - resolved
# Leukocytosis - resolved
# Venous stasis - compliant with compression
- Bcx neg to date
- Continue cefazolin (d2)
- Moisturize leg
- HAO-WRAP compression
- Elevate LE
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
Hypertension
Class III obesity BMI 46
Chronic left lower extremity venous stasis wounds
LE cellulitis
History of DVT
Gilbert's syndrome
Left total hip replacement
Left hip ORIF
Chief Complaint
-: Cellulitis
Subjective / Review of Systems
Wants to go home today.
Vital Signs / Physical Exam
Vital Signs
Vital Signs
Temp Pulse Resp BP Pulse Ox
98.6 F 62 20 151/73 96
06/07/24 08:20 06/07/24 06:00 06/06/24 19:43 06/07/24 06:00 06/06/24 23:42
Physical Exam
Constitutional: No Acute Distress and Obese
Cardiovascular: Regular Rate and S1/S2
Pulmonary: Clear
Gastrointestinal: Soft, Non Tender and Non Distended
Extremities: Edema (RLE >LLE) and Erythema (LLE ankle up the pederson)
Neurological: AO x 3
Objective Data
Lab Data
Lab Results
06/07/24 05:39
06/07/24 05:39
Estimated Creat Clear 111 ml/min 06/07/24 05:39
Lactic Acid Cancelled 06/06/24 02:30
Total Bilirubin 1.0 mg/dl (0.2-1.3) 06/05/24 20:48
AST 29 U/L (17-59) 06/05/24 20:48
ALT 21 U/L (0-50) 06/05/24 20:48
Alkaline Phosphatase 54 U/L (38-126) 06/05/24 20:48
Most recent labs reviewed.
Micro Results:
06/05/24 22:44 Blood Culture - Preliminary
Blood/Venous No Growth in 24 hours- Final report to follow
06/05/24 20:48 Influenza Types A & B (ASH) - Final
Nasal Swab Negative for Influenza A & B, NAAT
Negative results must be combined with clinical observations
and patient history.
Nucleic Acid Amplification test (NAAT)performed on the
[employer] platform.
06/05/24 CXR: Mild cardiomegaly. No findings to suggest pneumonia.
--- NOTE | 2024-06-07 10:53 | W.PN.HOSP.TC ---
Today's Communication/Plan
-
Continue IV cefazolin
Follow-up culture
Start hydralazine as needed for SBP >160
Resume HCTZ/lisinopril tomorrow
Assessment / Plan
Assessment / Plan
#Sepsis secondary to recurrent cellulitis
#Nonpurulent cellulitis of RLE
#Chronic venous insufficiency
-Presented with fever, leukocytosis, tachycardia; erythematous, warm, tender right calf
-Has had multiple recurrences of cellulitis to this area as well as to the LLE
-No purulence noted, states he does have some watery discharge at time
-Was started on antibiotic regimen of cefazolin and doxycycline; ID stopped Doxy today
-No further fevers, leukocytosis resolved, clinically improving
Plan
-Continue IV cefazolin every 8 hours, follow-up blood cultures
-Continue with Bentley wrap of the lower extremity for reduction of CDI
-Trend CBC and temperature curve
-Monitor leg clinically
#Hypertension
-Home medications include lisinopril-hydrochlorothiazide combination tablet
-No known history of hypertensive systemic disease
-Blood pressure soft on arrival BP meds held
-Continue to monitor vitals and resume antihypertensives as needed
-Started hydralazine as needed; plan to resume home meds tomorrow
#Gilbert's disease
-Chronic, T. bili was normal on arrival here
#Adrenal adenoma
-Per history, does not appear to be hormonally active
-Should have follow-up as outpatient
#Morbid obesity
-Affects all aspects of care
-Encourage dietary modification and exercise as tolerated
DVT prophylaxis: Lovenox
Diet: Regular
CODE STATUS: Full code
Disposition: Downgrade to telemetry
Anticipated Discharge: 24 - 48 hours
Subjective/Interval History
-
Date of Service: June 07, 2024
Seen and examined at the bedside. No acute events reported overnight. AFVSS this morning
Leukocytosis has resolved, no further fevers overnight. Leg clinically looks better. Patient asking to go home
Denies acute complaint
Objective Data
-
Labs:
Laboratory Results
06/07/24
05:39
WBC 8.4
Hgb 13.5
Hct 41.2
Plt Count 155
Sodium 139
Potassium 4.0
Chloride 106
Carbon Dioxide 25
BUN 21 H
Creatinine 0.8
Glucose 91
Calcium 8.8
Vital Signs:
Vital Signs
Temp Pulse Resp BP Pulse Ox
98.6 F 65 20 173/83 96
06/07/24 08:20 06/07/24 10:00 06/06/24 19:43 06/07/24 10:00 06/06/24 23:42
Review of Systems
-
History Source: Patient
All other systems: Reviewed and negative
Physical Exam
-
General: Well Developed, No Apparent Distress, Comfortable and Morbidly Obese
HEENT: Normocephalic, Atraumatic, Moist Mucous Membranes and Anicteric
Respiratory: Clear to Auscultation and Non Labored Respirations
Cardiac: Regular Rhythm and S1/S2; Negative Murmur, Rub or Gallop
GI: Soft, Nontender, Nondistended and Normal Bowel Sounds
Musculoskeletal: No Clubbing, No Cyanosis and No Edema
Skin: Warm, Dry and Other (Improved erythema, warmth, edema of the RLE at the level of the calf; compression bandage in place)
Neuro: AO x 3 and Nonfocal/Grossly Intact
Psych: Calm
Data Reviewed
-
Labs: Labs Reviewed by me, Discussed with Physician (Infectious disease) and Discussed with Patient
[2024-06-07] MEDS: APRESOLINE 10 MG IV (11:26)
--- NOTE | 2024-06-07 11:35 | PTCARENOTE ---
pt noted to have elevated BP, SBP >170. prn hydralazine given per MD order prior to pt transferring to rm 407.1, see MAR.
--- NOTE | 2024-06-07 12:00 | PTCARENOTE ---
Received report from Abida in IMU. Pt arrived to 407-1 at this time with belongings. Pt able to ambulate into room with use of crutches. See shift assessment for further detail. Pt elevating right leg in chair and HAO wrap applied to right lower
leg per orders. Oriented pt to , call bone, reporting concerns, plan of care, hand hygiene etc- pt verbalized understanding. Call bone within reach, will monitor.
[2024-06-07] MEDS: FLUSH (NSS) 1 FLUSH IV (16:27)
[2024-06-07] MEDS: LOVENOX 40 MG SC (17:42)
[2024-06-07] MEDS: TYLENOL 650 MG PO (18:27)
[2024-06-08 03:15] VITALS: BP 149/70
[2024-06-08 04:26] VITALS: BMI 45.6
[2024-06-08] MEDS: ANCEF 10 IV ×2 (05:41→14:07)
[2024-06-08 07:00] VITALS: BP 152/82
[2024-06-08] MEDS: ORETIC 12.5 MG PO (08:11)
[2024-06-08] MEDS: ASPIR LOW (ENTERIC COATED) 81 MG PO (08:11)
[2024-06-08] MEDS: ZESTRIL 20 MG PO (08:11)
--- NOTE | 2024-06-08 08:55 | W.PN.HOSP.TC ---
Today's Communication/Plan
-
Discharge planning today
Assessment / Plan
Assessment / Plan
Physical exam:
General: Well Developed, Well Nourished and No Apparent Distress
HEENT: Normocephalic, Atraumatic and Moist Mucous Membranes
Respiratory: Clear to Auscultation; Negative Wheezes, Rales or Rhonchi
Cardiac: Regular Rhythm and S1/S2
GI: Soft, Nontender and Nondistended
Musculoskeletal: No Clubbing, No Cyanosis. Right lower extremity wrapped up today but overall edema and erythema has decreased.
Neuro: Awake, Alert and Oriented
Psych: Calm
A/P:
#Sepsis secondary to recurrent cellulitis
#Nonpurulent cellulitis of RLE
#Chronic venous insufficiency
-Presented with fever, leukocytosis, tachycardia; erythematous, warm, tender right calf
-Has had multiple recurrences of cellulitis to this area as well as to the LLE
-No purulence noted, states he does have some watery discharge at time
-Was started on antibiotic regimen of cefazolin and doxycycline; ID stopped Doxy
-No further fevers, leukocytosis resolved, clinically improving
Plan
-Continue IV cefazolin every 8 hours, follow-up blood cultures--> discussed with ID today on 06/08 and they would like to give IV antibiotic at 2 PM and after that he can switch to oral antibiotic and can go home. Also recommended long-term
antibiotic suppression but will defer to PCP and ID as outpatient for such treatment.
-Continue with Bentley wrap of the lower extremity for reduction of CDI
-Trend CBC and temperature curve
-Monitor leg clinically
#Hypertension
-Home medications include lisinopril-hydrochlorothiazide combination tablet
-No known history of hypertensive systemic disease
-Blood pressure soft on arrival BP meds held
-Continue to monitor vitals and resume antihypertensives as needed
-Started hydralazine as needed; plan to resume home meds tomorrow
#Raphael's disease
-Chronic, Erum archer was normal on arrival here
#Adrenal adenoma
-Per history, does not appear to be hormonally active
-Should have follow-up as outpatient
#Morbid obesity
-Affects all aspects of care
-Encourage dietary modification and exercise as tolerated
DVT prophylaxis: Lovenox
Diet: Regular
CODE STATUS: Full code
Disposition: Downgrade to telemetry
Anticipated Discharge: Today
Subjective/Interval History
-
Date of Service: June 08, 2024
Patient feels much better today. Afebrile
Objective Data
-
Labs:
Laboratory Results
06/08/24
07:51
WBC Pending
Hgb Pending
Hct Pending
Plt Count Pending
Sodium Pending
Potassium Pending
Chloride Pending
Carbon Dioxide Pending
BUN Pending
Creatinine Pending
Glucose Pending
Calcium Pending
Vital Signs:
Vital Signs
Temp Pulse Resp BP Pulse Ox
98.4 F 58 20 152/82 96
06/08/24 07:00 06/08/24 07:00 06/08/24 07:00 06/08/24 07:00 06/08/24 07:15
I&O
06/07/24 06/08/24 06/09/24
06:59 06:59 06:59
Intake Total 720 / 720 480 / 480
Balance 720 / 720 480 / 480
--- NOTE | 2024-06-08 09:29 | WOUNDNOTE ---
[facility] RN NOTE: Reviewed chart and met with patient. Patient with recurrent cellulitis. He reports applying lac-hytrin cream daily, wearing compression with tubi-coin collector and farrow wraps, and using lymphedema pumps for an hour daily. Right LE with some
scant serous drainage, but no open wound at the time. Patient instructed to keep keep right leg elevated as ordered. Will update orders and discharge. DENIS Seth updated. Orders confirmed with hospitalist. Will follow as needed.
[2024-06-08 09:36] LABS: % Basophils 0.3 % (0-2); % Eosinophils 2.7 % (0-6); % Immature Granulocytes 0.4 % (0-0.5); % Lymphocytes 12.7 % (20.5-51.1); % Monocytes 4.3 % (1.7-9.3); % Neutrophils 79.6 % (42.2-75.2); Absolute Eosinophils 0.2 10^3/uL (0-0.7); Absolute Lymphocytes 0.9 10^3/uL (1.2-3.4); Absolute Monocytes 0.3 10^3/uL (0.1-0.6); Absolute Neutrophils 5.4 10^3/uL (1.4-6.5); Hematocrit 42.7 % (39.0-52.0); Hemoglobin 13.8 g/dL (13.0-18.0); Mean Corp Hgb Conc. 32.3 g/dL (33.0-37.0); Mean Corpuscular Hgb 29.2 pg (27.0-31.0); Mean Corpuscular Volume 90.5 fL (80.0-94.0); Mean Platelet Volume 10.5 fL (7.4-10.4); Nucleated Red Blood Cells % 0 % (-); Platelet Count 145 10^3/uL (130-400); Red Blood Cell Count 4.72 10^6/uL (4.70-6.10); Red Cell Dist. Width 14.8 % (11.5-14.5); White Blood Cell Count 6.8 10^3/uL (4.8-10.8)
[2024-06-08 10:08] LABS: Blood Urea Nitrogen 20 mg/dl (9-20); Calcium 8.9 mg/dl (8.4-10.2); Carbon Dioxide 25 mmol/L (22-30); Chloride 103 mmol/L (98-107); Estimated Creatinine Clearance 110 ml/min; Glucose 111 mg/dl (70-99); Potassium 3.5 mmol/L (3.5-5.1); Sodium 138 mmol/L (135-145); eGFR > 60.00
[2024-06-08 11:10] VITALS: BP 156/78
--- NOTE | 2024-06-08 11:37 | WOUNDNOTE ---
RIGHT MEDIAL LEG
--- NOTE | 2024-06-08 12:44 | W.PN.ID1 ---
Date of Service
Date of Service: June 08, 2024
Today's Communication
After 1400 dose of cefazolin (d3), can dc home on cephalexin 1000mg po q6h x 7 days, followed by suppressive abx PCN-VK 500mg po daily x 6 months.
Follow up with PCP.
Assessment / Plan
# Recurrent RLE non-purulent cellulitis, improving
# Fever - resolved
# Leukocytosis - resolved
# Venous stasis - compliant with compression
- Bcx neg to date
- Moisturize leg
- Compression
- After 1400 dose of cefazolin (d3), can dc home on cephalexin 1000mg po q6h x 7 days, followed by suppressive abx PCN-VK 500mg po daily x 6 months.
- Follow-up with PCP.
# Conditions [employer]
Hypertension
Class III obesity BMI 46
Chronic left lower extremity venous stasis wounds
LE cellulitis
History of DVT
Gilbert's syndrome
Left total hip replacement
Left hip ORIF
Chief Complaint
-: Cellulitis
Subjective / Review of Systems
No complaints
Vital Signs / Physical Exam
Vital Signs
Vital Signs
Temp Pulse Resp BP Pulse Ox
98.2 F 62 18 156/78 98
06/08/24 11:10 06/08/24 11:10 06/08/24 11:10 06/08/24 11:10 06/08/24 11:25
Physical Exam
Constitutional: No Acute Distress
Gastrointestinal: Soft, Non Tender and Non Distended
Extremities: Other (RLE: edema decreased, erythema decreased)
Neurological: AO x 3
Objective Data
Lab Data
Lab Results
06/08/24 07:51
06/08/24 07:51
Estimated Creat Clear 110 ml/min 06/08/24 07:51
Lactic Acid Cancelled 06/06/24 02:30
Total Bilirubin 1.0 mg/dl (0.2-1.3) 06/05/24 20:48
AST 29 U/L (17-59) 06/05/24 20:48
ALT 21 U/L (0-50) 06/05/24 20:48
Alkaline Phosphatase 54 U/L (38-126) 06/05/24 20:48
Most recent labs reviewed.
Micro Results:
06/05/24 22:44 Blood Culture - Preliminary
Blood/Venous No Growth in 48 hours- Final report to follow
06/07/24 11:55 Nasal Screen MRSA (PCR) - Final
Nose MRSA not detected - performed by PCR methodology.
06/05/24 20:48 Influenza Types A & B (ASH) - Final
Nasal Swab Negative for Influenza A & B, NAAT
Negative results must be combined with clinical observations
and patient history.
Nucleic Acid Amplification test (NAAT)performed on the
[employer] NOW platform.
06/05/24 CXR: Mild cardiomegaly. No findings to suggest pneumonia.
Care Review
Plan reviewed with: Physician (Dr. Godoy)
[2024-06-08] MEDS: LAC HYDRIN, AM LACTIN LOTION 1 APPLIC TOPICAL (13:58)
[2024-06-08 14:40] VITALS: BP 155/83
--- NOTE | 2024-06-08 15:55 | CM ---
Late Note: CM met with Alcides and his at bedside prior to discharge. Registration shows that pt has Medicare, so I was issuing the IMM, however pt and his advised that although Alcides is of age to have Medicare, he is still employed and
his only insurance is through his employer which covers both Alcides and his .
Plan: Alcides is discharged to home with plan for resumption of outpatient therapies. No needs identified.
== END 2024-06-08 15:01 | disposition home or self-care (01) | DRG 872 ==
LOC: 4 EAST ACU 23:39
PROVIDERS: Internal Medicine; ADMITTING PHYSICIAN Hospitalist; ATTENDING PHYSICIAN Hospitalist; CONSULT PHYSICIAN Internal Medicine Infectious Disease; EMERGENCY PHYSICIAN Emergency Medicine
DX: A41.9 Sepsis, unspecified organism (principal); L03.115 Cellulitis of right lower limb; Z68.42 Body mass index [BMI] 45.0-49.9, adult; I87.2 Venous insufficiency (chronic) (peripheral); I10 Essential (primary) hypertension; E80.4 Gilbert syndrome; E66.01 Morbid (severe) obesity due to excess calories; M51.369 Other intervertebral disc degeneration, lumbar region without mention of lumbar back pain or lower extremity pain; E66.813 Obesity, class 3; M48.061 Spinal stenosis, lumbar region without neurogenic claudication; N28.1 Cyst of kidney, acquired; D35.00 Benign neoplasm of unspecified adrenal gland; Z86.72 Personal history of thrombophlebitis; Z79.82 Long term (current) use of aspirin; Z86.718 Personal history of other venous thrombosis and embolism; I95.9 Hypotension, unspecified; Z11.52 Encounter for screening for COVID-19; I87.8 Other specified disorders of veins; Z96.642 Presence of left artificial hip joint
CPT/HCPCS: 71046; 80048; 80053; 81003; 81015; 83605; 84439; 84443; 85025; 85027; 87040; 87502; 87641; 87811; 96365; 96375; 97163; 97166; 99284

== ENCOUNTER 2024-08-12 19:45 | Inpatient (IN) | payer OTHER, SELFPAY ==
[2024-08-12 13:58] VITALS: BP 136/86
[2024-08-12 14:29] LABS: % Basophils 0.1 % (0-2); % Eosinophils 0.7 % (0-6); % Immature Granulocytes 0.3 % (0-0.5); % Monocytes 5.6 % (1.7-9.3); % Neutrophils 89.3 % (42.2-75.2); Absolute Eosinophils 0.1 10^3/uL (0-0.7); Absolute Lymphocytes 0.6 10^3/uL (1.2-3.4); Absolute Monocytes 0.8 10^3/uL (0.1-0.6); Absolute Neutrophils 13.1 10^3/uL (1.4-6.5); Hematocrit 41.7 % (39.0-52.0); Mean Corp Hgb Conc. 33.6 g/dL (33.0-37.0); Mean Corpuscular Hgb 29.2 pg (27.0-31.0); Mean Corpuscular Volume 86.9 fL (80.0-94.0); Mean Platelet Volume 9.6 fL (7.4-10.4); Nucleated Red Blood Cells % 0 % (-); Platelet Count 170 10^3/uL (130-400); Red Cell Dist. Width 14.6 % (11.5-14.5); White Blood Cell Count 14.7 10^3/uL (4.8-10.8)
[2024-08-12 14:40] LABS: Lactic Acid 0.9 mmol/L (0.7-2.0)
[2024-08-12 14:42] LABS: ALT (SGPT) 18 U/L (0-50); AST (SGOT) 24 U/L (17-59); Albumin 4.2 g/dl (3.5-5.0); Alkaline Phosphatase 77 U/L (38-126); Blood Urea Nitrogen 28 mg/dl (9-20); Calcium 9.1 mg/dl (8.4-10.2); Carbon Dioxide 25 mmol/L (22-30); Chloride 100 mmol/L (98-107); Glucose 103 mg/dl (70-99); Potassium 3.9 mmol/L (3.5-5.1); Sodium 136 mmol/L (135-145); Total Bilirubin 1.5 mg/dl (0.2-1.3); Total Protein 7.4 g/dl (6.3-8.2); eGFR > 60.00
[2024-08-12 14:44] LABS: COVID-19 Antigen Negative (Negative)
[2024-08-12] MEDS: NSS 3800 ML IV (16:59)
[2024-08-12 17:00] VITALS: BP 129/60
--- NOTE | 2024-08-12 17:25 | ED.GENMED ---
History of Present Illness
General
Chief Complaint: Fever
Source: patient and spouse
Time Seen by Provider: 08/12/24 16:30
History of Present Illness
History of Present Illness:
69-year-old male with past medical history of hypertension, DVT, chronic venous stasis with secondary cellulitis (on chronic Pen-VK for at least another few months) presenting to the emergency department for evaluation with who states patient
seemed to be acting a little bit funny, felt hot to the touch and was found to have a fever of 101.4 at home, gave 2 extra strength Tylenol's and brought patient to the ER for further patient does note he has had some weeping to the left lower
extremity which he felt started yesterday, thought he had a little bit of increased redness to the right lower extremity. Patient otherwise denies any URI-like symptoms, abdominal pain, nausea, vomiting, chest pain, shortness of breath,
urinary symptoms or bowel changes. No known sick contacts or recent travel. Patient follows with infectious disease physician, Dr. Roman
Past History
Past History
ED Past Medical History: HTN and Other (Obesity)
ED Past Surgical History: Orthopedic
Social History
Tobacco: Non-smoker
Alcohol: Occasional
Drug: None
Personal:
Living: with family
Employment: Retired
Family History
Family History: Other
Review of Systems
Review of Systems
All Other Systems: ROS reviewed and negative except as documented in HPI and ROS
Phy Exam
Physical Exam
Physical Exam:
GENERAL: Alert , in no apparent distress, appears older than stated age
EYE: Clear conjunctiva
NECK: Supple, no significant adenopathy.
ENT: o/p clr, mmm.
CARDIAC: Regular rate and rhythm .
LUNGS: Clear breath sounds bilaterally, no acute respiratory distress, no wheezes/rales/rhonchi
ABDOMEN: Soft, without focal tenderness, no r/g, no cvat
NEUROLOGICAL: Alert and oriented
SKIN: Hot to the touch, clammy, patient with dressings over both lower extremities, weeping. Increased erythema to the right lower extremity compared to the left and slightly more edematous although notes that the edema is chronic
MUSCULOSKELETAL: No edema, well perfused.
PSYCH: Normal and appropriate interaction.
Scores
Heart Failure Risk
Heart Failure Risk Score: Not Applicable
Heart Score for Chest Pain Patients
STEMI patient?: Not applicable
Withdrawal Assessment of Alcohol
Withdrawal Assessment Completed?: Not applicable
Course
Orders/Labs/Results
Orders:
Orders
08/12/24 Breakfast
Cholesterol Lowering
At Your Request: Limited Participation
Does patient need a safe tray?: No
Cholesterol Lowering: Sodium, 2 Gram
08/12/24 14:18
COVID-19 Antigen Urgent
Source: Nasal Swab
Complete Blood Count/With Diff Urgent
Comprehensive Metabolic Panel Urgent
Lactic Acid Q4H
Comment: ON ICE, CANCEL 2ND ORDER IF FIRST LACTIC ACID LEVEL <2
Blood Culture Urgent
BETHEL Source: Blood/Venous
Specimen Description:
Influenza A+B Rapid Molecular Urgent
BETHEL Source: Nasal Swab
Specimen Description:
08/12/24 16:47
Urinalysis Reflex To Culture Urgent
0.9% Sodium Chloride 1000 ml [Nss] 3,800 ml IV NOW STA
08/12/24 16:48
CR Chest - 2 Views Urgent
Comment:
Reason For Exam: fever
08/12/24 16:58
Blood Culture Q30M
BETHEL Source: Blood/Venous
Specimen Description:
08/12/24 17:30
Blood Culture Q30M
BETHEL Source: Blood/Venous
Specimen Description:
08/12/24 17:44
Procalcitonin Urgent
08/12/24 18:38
Vancomycin [Vancocin] 2,000 mg 0.9% Sodium Chloride 500 ml [Nss] 500 ml IV NOW
08/12/24 19:09
Admit/Transfer Patient As Directed
Co-Sign Provider:
Level of Care: Inpatient admission
Assign to:: Medical/Surgical
Physician / Group: [email or web address]
Diagnosis: recurrent cellultis
Reason for Hospitalization: recurrent cellulitis
Expected length of stay greater than two midnights?: Yes
ELOS- Estimated Length of Stay in days: 3
I certify the patient meets the requirements for IP care: Yes
08/12/24 19:12
Code Status As Directed
Resuscitation Status: Full Code
08/12/24 20:22
Acetaminophen [Tylenol] 1,000 mg PO Q6HPRN PRN
Bisacodyl [Dulcolax] 10 mg RECTAL [id number] PRN
Docusate W/Senna [Senokot-S] 1 tablet PO BIDPRN PRN
Polyethylene Glycol Powder [Miralax] 17 grams PO DAILYPRN PRN
VANCOMYCIN Pharmacy to Dose [VANCOCIN Pharmacy to Dose] 1 each Pharmacy To Prepare [Call Pharmacy To Prepare] 0 ml IV PER PROTOCOL
08/12/24 20:22
WOUND/OSTOMY CONSULT Routine
Reason for Consult: weeping to theLt Elif, chr venous stasis
Activity As Directed
Activity Level: With Assistance
Intake/ Output As Directed
Frequency: Per unit guidelines
Vital Signs As Directed
Frequency: Per unit guidelines
DX Deep Vein Thrombosis Video Routine
08/13/24 06:00
Basic Metabolic Panel IN AM
Complete Blood Count/No Diff IN AM
08/13/24 08:00
Aspirin Low Dose EC [Aspir Low (Enteric Coated)] 81 mg PO DAILY
Lisinopril [Zestril] 20 mg PO DAILY
08/13/24 18:00
Enoxaparin Sodium [Lovenox] 40 mg SC QPM
Abnormal Lab Results
08/12/24
14:18
WBC 14.7 H 10^3/uL
(4.8-10.8)
RDW 14.6 H %
(11.5-14.5)
Absolute Neuts (auto) 13.1 H 10^3/uL
(1.4-6.5)
Absolute Lymphs (auto) 0.6 L 10^3/uL
(1.2-3.4)
Absolute Monos (auto) 0.8 H 10^3/uL
(0.1-0.6)
Neutrophils % 89.3 H %
(42.2-75.2)
Lymphocytes % 4.0 L %
(20.5-51.1)
BUN 28 H mg/dl
(9-20)
Glucose 103 H mg/dl
(70-99)
Total Bilirubin 1.5 H mg/dl
(0.2-1.3)
08/12/24 14:18
08/12/24 14:18
Vital Signs
Initial and Last Documented VS:
Initial Vital Signs
Temp Pulse Resp BP Pulse Ox
100.1 F 85 18 136/86 99
08/12/24 13:58 08/12/24 13:58 08/12/24 13:58 08/12/24 13:58 08/12/24 13:58
Last Documented Vital Signs
Temp Pulse Resp BP Pulse Ox
100.1 F 62 16 134/58 97
08/12/24 13:58 08/12/24 20:06 08/12/24 18:03 08/12/24 20:00 08/12/24 18:44
MDM/Problems Addressed
Differential Diagnosis Includes:
Recurring cellulitis, peripheral vascular disease, recurring sepsis/bacteremia, viral syndrome, COVID/flu
MDM/Problems Addressed:
69-year-old male presenting the emergency department for evaluation of fever that reportedly began today, states patient seemed to be a 'little bit loopy' at home today which is why she thought he could potentially have a fever. Patient is
getting treated for a chronic cellulitis and is on pen VK twice daily for at least another 3 months. Patient does appear to have increased erythema to the right lower extremity. Sepsis workup initiated. Patient does have a leukocytosis of 14,000.
Cultures and lactic acid ordered. Anticipate admission. Deferring antibiotics for now given unclear source for infection at this time until chest x-ray and urinalysis are resulted.
Chronic conditions affecting care: PVD
Acute Exacerbation and/or Progression of Chronic Illness: PVD
*Radiology
Radiology exam reviewed: radiology read reviewed (cardiomegaly)
*Pulse Oximetry
Patient hypoxic: no
*Critical Care Note
Total Time (30-74mins, 75-104mins- exclusive of procedures): Not Applicable
Data Reviewed
Review of Other/Old Records Reveals: Labs and Records
Patient Management
Discussion with other providers: Hospitalist
Escalation/DeEscalation of care consider admission/obs:
Hospitalist team accepts evaluation and treatment of fever with suspected new right lower extremity cellulitis despite outpatient antibiotics
ED Attending Note
-
Portions of this chart may have been created with voice recognition software.� Occasional wrong word or��sound alike� substitutions may have occurred due to the inherent limitations of voice recognition software.
Discharge Plan
Departure
Patient Disposition: Admit
Date of Disposition: 08/12/24
Time of Disposition: 18:27
Presentation/result/management discussed w/ accepting MD/DO: Hospitalist
Discharge Problem:
Fever
Interventions
Interventions:
*Risk Screen - Suicide Last Done: 08/12/24 13:58
*General Assessment Last Done: 08/12/24 13:58
*Neglect/Abuse Screening Last Done: 08/12/24 16:46
ED- Fall Risk Assessment Last Done: 08/12/24 19:46
*ED COVID-19 Vaccine History Last Done: 08/12/24 13:58
*Nursing Disposition Last Done: 08/12/24 19:46
ED- Neurological Assessment Last Done: 08/12/24 16:46
ED-Skin Assessment Last Done: 08/12/24 16:46
Discharge Date and Time
Discharge Date/Time: 08/12/24 20:19
[2024-08-12 18:00] VITALS: BP 121/56
[2024-08-12 18:24] LABS: Procalcitonin < 0.05 ng/ml (0.0-0.25)
[2024-08-12] MEDS: VANCOCIN 540 MG IV (19:03)
--- NOTE | 2024-08-12 19:05 | HPS.HSE ---
Family Physician
-
Family Physician: Alcides Yuen
Chief Complaint
-
weeping to the Lt Elif
increased redness to the Rt Elif
History of Present Illness
HPI
69M HX morbid obesity, chronic venous stasis,DVT, recurrent cellulitis on Pen -VK ABx supression since late Dex 2023 seen at ER:
- fever 101.4
- seemed to be acting a little bit funny pr spouse
- gave 2 extra strength Tylenol's and brought patient to the ER
- noted he has had some weeping to the Lt Elif
- increased redness to the Rt Elif
ROS
- denies any URI-like symptoms, abdominal pain, nausea, vomiting, chest pain, shortness of breath, urinary symptoms - - no known sick contacts or recent travel.
Medical History
Past Medical History
Past Medical History: Reports Other
Additional Past Medical History:
HTN
Morbid Obesity
Renal cyst
Adrenal adenoma
Gilbert's syndrome
Lumbar spinal stenosis
Venous insufficiency
Lumbar degenerative disc disease
History of superficial phlebitis / DVT
Past Surgical History: Reports Other
Additional Past Surgical History:
Left KESHAV
Left Hip ORIF (14 yo)
Social History
Tobacco: Non-smoker
Alcohol: Occasional
Drug: None
Personal:
Living: With Family
Employment: Employed
Family History
Family History: Not pertinent
Allergies / Home Medications
Allergies reflects when Allergies were last updated in [facility].
Home Medications with original date entered in [facility]
Allergy/Medication List:
Allergies
Allergy/AdvReac Type Severity Reaction Status Date / Time
shellfish derived Allergy Unknown Verified 04/25/24 09:47
shrimp Allergy wheeze Verified 04/25/24 09:47
Home Medications
aspirin 81 mg tablet,delayed release 81 mg PO DAILY Blood Clot Prevention/Tx 12/04/23
lisinopril 20 mg-hydrochlorothiazide 12.5 mg tablet 1 tab PO DAILY Blood Pressure 12/04/23
multivit,Ca,min-iron 8 mg-folic acid 200 mcg-lycopene 600 mcg tablet (Centrum Men) 1 tab PO DAILY Supplement 12/04/23
acetaminophen 500 mg tablet (Tylenol Extra Strength) 1,000 mg PO Q6HPRN PRN mild pain/fever 06/05/24
cephalexin 750 mg capsule 750 mg PO Q6H 10 days #40 caps 06/05/24
turmeric 400 mg capsule 800 mg PO DAILY 06/05/24
Review of Systems
-
History Source: Patient and Family
A 12 point ROS was completed and negative except as noted: Yes
Constitutional: Reports Fever and Fatigue; Denies Chills
EENT: Denies Sore Throat
Respiratory: Denies Cough or Trouble Breathing
Cardiac: Denies Chest Pain or Palpitations
Abdomen/GI: Denies Abdominal Pain, Nausea, Vomiting or Diarrhea
: Reports Incontinence; Denies Dysuria, Frequency, Flank Pain, Urgency or Bleeding
Musculoskeletal: Reports Edema; Denies Joint Pain
Skin: Reports Rash and Other (Redness / weeping.)
Neurological: Denies Dizzy or Headache
Psych: Denies Depression or Anxiety
Physical Exam
Vital Signs
Vital Signs
Temp Pulse Resp BP Pulse Ox
100.1 F 64 16 121/56 97
08/12/24 13:58 08/12/24 18:03 08/12/24 18:03 08/12/24 18:00 08/12/24 18:00
Physical Exam
General: Other (Flushed appearing 69y M in no acute distress.)
HEENT: Other (Dry MM. Thick neck.)
Respiratory: Other (Decreased BS at bases - otherwise clear.)
Cardiac: S1/S2 and Regular Rhythm; No Murmur
GI: Non Tender, Non Distended, Normal Bowel Sounds and Other (Obese.)
Musculoskeletal: No Clubbing and Other (Erythema and increased warmth RLE from the mid-pederson to the ankle. Increased warmth. Mild serous oozing circumferentially. No ulcerations. LLE with chronic stasis changes - no erythema or increased warmth.)
Neuro: AO x 3
Laboratory Results
-
08/12/24 14:18
08/12/24 14:18
Laboratory Results
Lactic Acid 0.9 mmol/L (0.7-2.0) 08/12/24 14:18
Total Bilirubin 1.5 mg/dl (0.2-1.3) H 08/12/24 14:18
AST 24 U/L (17-59) 08/12/24 14:18
ALT 18 U/L (0-50) 08/12/24 14:18
Alkaline Phosphatase 77 U/L (38-126) 08/12/24 14:18
Data Reviewed
-
Lab Data: Labs Reviewed by me
Old Records: Reviewed
Impression/Plan
-
Vital Signs
Temp Pulse Resp BP Pulse Ox
100.1 F 64 16 121/56 97
08/12/24 13:58 08/12/24 18:03 08/12/24 18:03 08/12/24 18:00 08/12/24 18:00
Data
WCC 14.7
BUN 28
eGFR > 60
NEG PCT'
Pending LA
NEG Covid
Check UA
BCx sent
Last hospitalist admission:
Date of Admission: 06/05/24 - Date of Discharge: 06/08/24
DXs: Recurrent right lower extremity cellulitis. Chronic venous stasis.
Antibiotic instructions
Take high dose cephalexin 1000mg four times a day for 7 days.
After the cephalexin, you should be on suppressive antibiotic Penicillin-VK 500mg once a day for 6 months to hopefully prevent recurrent cellulitis.
Your doctor can fill the prescription for Penicillin-VK.
ASSESSMENT & PLAN
Recurrent Elif Cellulitis Rt > Lt
Sepsis secondary to the above
Chronic Venous Insufficiency
- with fever (100 at ER ) leukocytosis with RLLE exam findings c/w cellulitis.
- Similar prior admissions
- IV Vancomycin and hold Pen VK
- Wound Care consult
- ID consult
Benign Hypertension
- cont. Lisinopril/HCTZ
Morbid Obesity secondary to excess calories
- Affects all aspects of life
DVT Prophylaxis: Lovenox
Code Status: Full
IP MS
[2024-08-12 20:00] VITALS: BP 134/58
[2024-08-12 20:30] VITALS: BMI 43.6
[2024-08-12 20:45] VITALS: BP 157/79
--- NOTE | 2024-08-12 20:54 | PHA.VAN.IN ---
Assessment
- Assessment
Renal Function: Appears similar to baseline (06/08/24 SCR: 0.8)
Concomitant Antimicrobials: ZOSYN
- Previous Dosing Experience
Previous Regimen: 1500MG IV Q12H
Date of Regimen: 12/05/23
Provided Trough of: 10.8 PREDICTED
Provided AUC of: 468 PREDICTED
Patient's SCR is: Similar to previous dosing experience (12/05/23 SCR = 0.8)
Patient's weight is: Decreased compared to previous dosing experience (12/05/23 WT = 136.2 KG)
AUC Dosing Plan
- Dosing Variables
Dosing Weight (kg): 122.6
Dosing CrCl (ml/min): 96
Vd coefficient (L/kg): 0.5
- Empiric Dosing
Initial / Loading Dose: 2GM
Maintenance Regimen: 1250MG IV Q12H
Estimated AUC (mcg*h/mL): 516
Estimated Peak (mcg*h/mL): 32.1
Estimated Trough (mcg/ml): 13.3
Estimated Half Life (H): 8.2
Pharmacokinetics Vancomycin I
- -
Patient Age: 69
Patient Sex: Male
Vancomycin Day #: 1
Indication: Skin And Soft Tissue (BILAT LE CELLULITIS; SEPSIS)
Requesting Provider: NIKHIL
Height / Weight:
Height 5 ft 6 in
Actual Weight 122.606 kg
- Vital Signs / Lab Results
Temp Pulse Resp BP Pulse Ox
98.7 F 84 20 157/79 99
08/12/24 20:45 08/12/24 20:45 08/12/24 20:45 08/12/24 20:45 08/12/24 20:45
Lab Results - Hematology
08/12/24
14:18
WBC 14.7 H
Lab Results - Chemistry
08/12/24
14:18
BUN 28 H
Creatinine 0.9
Albumin 4.2
08/12/24 08/12/24
14:18 18:15
Lactic Acid 0.9 Cancelled
Microbiology Results
08/12/24 14:18 Influenza Types A & B (ASH) - Final
Nasal Swab Negative for Influenza A & B, NAAT
Negative results must be combined with clinical observations
and patient history.
Nucleic Acid Amplification test (NAAT)performed on the
[employer] NOW platform.
--- NOTE | 2024-08-12 21:46 | PTCARENOTE ---
Pt admitted to 4E. AAOx3. Gen weakness. Lung sounds diminish at bases, Sao2 94% RA. Regular heart sounds. Abd round. Wound care provide b/l lower legs. MASD under abd. OOBx1 w/ RW. Call bone within reach.
[2024-08-12 23:41] VITALS: BP 148/85
[2024-08-13] MEDS: VANCOCIN 275 MG IV (06:05)
[2024-08-13 06:47] LABS: Hematocrit 41.4 % (39.0-52.0); Hemoglobin 13.7 g/dL (13.0-18.0); Mean Corp Hgb Conc. 33.1 g/dL (33.0-37.0); Mean Corpuscular Hgb 28.8 pg (27.0-31.0); Mean Corpuscular Volume 87.2 fL (80.0-94.0); Mean Platelet Volume 9.9 fL (7.4-10.4); Platelet Count 169 10^3/uL (130-400); Red Blood Cell Count 4.75 10^6/uL (4.70-6.10); Red Cell Dist. Width 14.9 % (11.5-14.5); White Blood Cell Count 13.8 10^3/uL (4.8-10.8)
[2024-08-13 07:20] LABS: Blood Urea Nitrogen 23 mg/dl (9-20); Calcium 8.5 mg/dl (8.4-10.2); Carbon Dioxide 28 mmol/L (22-30); Chloride 102 mmol/L (98-107); Estimated Creatinine Clearance 86 ml/min; Glucose 93 mg/dl (70-99); Potassium 3.9 mmol/L (3.5-5.1); Sodium 136 mmol/L (135-145); eGFR > 60.00
[2024-08-13] MEDS: ZESTRIL 20 MG PO (08:37)
[2024-08-13] MEDS: ORETIC 12.5 MG PO (08:37)
[2024-08-13] MEDS: ASPIR LOW (ENTERIC COATED) 81 MG PO (08:37)
[2024-08-13 08:39] VITALS: BP 122/59
--- NOTE | 2024-08-13 09:20 | PHA.VAN.FU ---
Vancomycin Assessment / Plan
- Assessment
Renal Function: Stable
WBC's are: Trending Down
In the past 24 hrs, patient has been: Afebrile
- Dosing Plan
Continue: Vanc 1250mg Q12H
- Monitoring Plan
No level(s) ordered at this time: consider levels in next few days
Monitoring Comments: may be slower to achieve steady state due to weight > 100kg
- Follow Up
Pharmacy will continue to follow.
Vancomycin Follow UP
- -
Patient Age: 69
Patient Sex: Male
Vancomycin Day #: 2
Indication: Skin And Soft Tissue
Requesting Provider: Dr. Smith
Pertinent Antimicrobial Allergies:
no pertinent antibiotic allergies
Height / Weight:
Height 5 ft 6 in
Actual Weight 122.606 kg
Pertinent Past Medical History: BMI ~44
- Vital Signs / Lab Results
Temp Pulse Resp BP Pulse Ox
99.2 F 75 19 122/59 98
08/13/24 08:39 08/13/24 08:39 08/12/24 23:41 08/13/24 08:39 08/13/24 08:41
Lab Results - Hematology
08/12/24 08/13/24
14:18 06:16
WBC 14.7 H 13.8 H
Lab Results - Chemistry
08/12/24 08/13/24
14:18 06:16
BUN 28 H 23 H
Creatinine 0.9 1.0
Estimated Creat Clear 86
Albumin 4.2
08/12/24 08/12/24
14:18 18:15
Lactic Acid 0.9 Cancelled
Microbiology Results
08/12/24 14:18 Influenza Types A & B (ASH) - Final
Nasal Swab Negative for Influenza A & B, NAAT
Negative results must be combined with clinical observations
and patient history.
Nucleic Acid Amplification test (NAAT)performed on the
[employer] NOW platform.
--- NOTE | 2024-08-13 10:23 | W.PN.HOSP.TC ---
Today's Communication/Plan
-
Monitor vital signs
see plan
Continue with IV antibiotics
PT/OT
Wound care
Assessment / Plan
Assessment / Plan
General: Other (Flushed appearing 69y M in no acute distress.)
HEENT: Other (Dry MM. Thick neck.)
Respiratory: Other (Decreased BS at bases - otherwise clear.)
Cardiac: S1/S2 and Regular Rhythm; No Murmur
GI: Non Tender, Non Distended, Normal Bowel Sounds and Other (Obese.)
Musculoskeletal: No Clubbing and Other (Erythema and increased warmth RLE from the mid-pederson to the ankle. Increased warmth. Mild serous oozing circumferentially. No ulcerations. LLE with chronic stasis changes - no erythema or increased warmth.)
Neuro: AO x 3
Recurrent Elif Cellulitis Rt > Lt
Chronic Venous Insufficiency
leukocytosis with RLLE exam findings c/w cellulitis.
- Similar prior admissions
- IV Vancomycin and hold Pen VK; likely can be transition to Ancef. Will wait for ID evaluation
- Wound Care consult
- ID consulted
Benign Hypertension
- cont. Lisinopril/HCTZ
Morbid Obesity secondary to excess calories
- Affects all aspects of life
DVT Prophylaxis: Lovenox
Code Status: Full
Anticipated Discharge: Within 24 hours
Subjective/Interval History
-
Date of Service: August 13, 2024
Denies nausea
Objective Data
-
Labs:
Laboratory Results
08/13/24
06:16
WBC 13.8 H
Hgb 13.7
Hct 41.4
Plt Count 169
Sodium 136
Potassium 3.9
Chloride 102
Carbon Dioxide 28
BUN 23 H
Creatinine 1.0
Glucose 93
Calcium 8.5
Vital Signs:
Vital Signs
Temp Pulse Resp BP Pulse Ox
99.2 F 75 19 122/59 98
08/13/24 08:39 08/13/24 08:39 08/12/24 23:41 08/13/24 08:39 08/13/24 08:41
I&O
08/12/24 08/13/24 08/14/24
06:59 06:59 06:59
Intake Total 240 / 240
Balance 240 / 240
--- NOTE | 2024-08-13 10:45 | WOUNDNOTE ---
R CALF (POSTERIOR)(with photo flash)
--- NOTE | 2024-08-13 10:45 | WOUNDNOTE ---
LLE (LATERAL POSTERIOR)
--- NOTE | 2024-08-13 10:45 | WOUNDNOTE ---
R ANKLE (POSTERIOR LATERAL)
--- NOTE | 2024-08-13 11:12 | CON.ID ---
Consultation
-
Date/Time Consultation Requested: August 12, 2024 [id number]
Date/Time Consultation Performed: August 13, 2024 1110
Requesting Provider: Dr. Parviz Smith
Performing Provider: Dr. Alecia Roman
Reason for Consultation: Recurrent lower extremity cellulitis
Chief Complaint / Past History
Chief Complaint
Fever
History of Present Illness
69-year-old male with class III obesity, venous stasis, cellulitis who presented to the hospital 08/12 with his 4th episode of fever and right lower extremity cellulitis since 11/2023. He has been on suppressive penicillin VK 500 mg daily since
May. He reports his leg was getting better slowly. However yesterday he developed fever 101 at home. Right right leg noted to be redder. The left leg also started to weep. His was concerned and therefore brought him to the hospital.
White count 14.7. He is currently on vancomycin. He reports legs look better today. He continues to be compliant with compression at all times. He moisturizes his legs. No cough, shortness of breath. No nausea vomiting or diarrhea. No urinary
symptoms.
Past History
Additional Past Medical History:
Hypertension
Class III obesity BMI 44
Chronic left lower extremity venous stasis wounds
LE cellulitis
History of DVT
Gilbert's syndrome
Left total hip replacement
Left hip ORIF
Allergy History:
shellfish derived Allergy (Verified 08/12/24 14:02)
Unknown
shrimp Allergy (Verified 08/12/24 14:02)
wheeze
Medications Reviewed: Yes
Current Antibiotics:
Vancomycin
Social History
Tobacco: Non-Smoker
Alcohol: None
Drug: None
Personal:
Family History
Family History: Not Pertinent
Review of Systems
Review of Systems
General: Fever and Chills; Negative Change in Appetite
HEENT: Negative Sinus Problems, Headache or Pharyngitis
Cardiovascular: Negative Chest Pain or Dyspnea
Respiratory: Negative Dyspnea or Cough
Gasteroenterology: Negative Nausea, Vomiting or Diarrhea
Genital / Urological: Negative Dysuria or Flank Pain
Endocrine: Negative Weakness
Neurological: Negative Dizziness
All systems: All other systems were reviewed and were negative
Vital Signs
Temp Pulse Resp BP Pulse Ox
99.2 F 75 19 122/59 98
08/13/24 08:39 08/13/24 08:39 08/12/24 23:41 08/13/24 08:39 08/13/24 08:41
Physical Exam
Physical Exam
Constitutional: Comfortable and Obese
Eyes: No Conjunctival Hemorrhage and Sclera Anicteric
Cardiovascular: Regular Rate and S1/S2
Pulmonary: Clear
Gastrointestinal: Soft, Non Tender, Non Distended and Normal Bowel Sounds
Extremities: Edema (BLE lymphedema R>L), Erythema (RLE + erythema from ankle up the pederson and calf, + warmth. Left lateral calf with macerated skin. ) and Venous Insufficiency (BLE)
Neurological: AO x 3
Lab / Diagnostic Study Results
08/13/24 06:16
08/13/24 06:16
Abs Immat Gran (auto) 0.0 10^3/uL (0-0.05) 08/12/24 14:18
Absolute Neuts (auto) 13.1 10^3/uL (1.4-6.5) H 08/12/24 14:18
Absolute Lymphs (auto) 0.6 10^3/uL (1.2-3.4) L 08/12/24 14:18
Absolute Monos (auto) 0.8 10^3/uL (0.1-0.6) H 08/12/24 14:18
Absolute Basos (auto) 0.0 10^3/uL (0-0.2) 08/12/24 14:18
Immature Gran % 0.3 % (0-0.5) 08/12/24 14:18
Neutrophils % 89.3 % (42.2-75.2) H 08/12/24 14:18
Lymphocytes % 4.0 % (20.5-51.1) L 08/12/24 14:18
Monocytes % 5.6 % (1.7-9.3) 08/12/24 14:18
Eosinophils % 0.7 % (0-6) 08/12/24 14:18
Basophils % 0.1 % (0-2) 08/12/24 14:18
Lactic Acid Cancelled 08/12/24 18:15
Procalcitonin < 0.05 ng/ml (0.0-0.25) 08/12/24 17:44
Microbiology Results
Micro:
08/13/24 06:16 Blood Culture - Pending
Blood/Venous
08/12/24 16:58 Blood Culture - Pending
Blood/Venous
08/12/24 14:18 Influenza Types A & B (ASH) - Final
Nasal Swab Negative for Influenza A & B, NAAT
Negative results must be combined with clinical observations
and patient history.
Nucleic Acid Amplification test (NAAT)performed on the
[employer] ID NOW platform.
08/12/24 14:18 Blood Culture - Pending
Blood/Venous
08/12/24 CXR: The lungs appear clear.
Assessment / Plan
# Recurrent RLE cellulitis (despite on suppressive PCN-VK)
# Leukocytosis
# Lymphedema and Venous stasis - compliant with compression
- Replace Vanco with cefazolin 2g IV q8.
- Appreciate wound care recs.
- Follow wbc.
--- NOTE | 2024-08-13 11:21 | PN.CDI ---
CDI
- -
CDI:
Physician Documentation Request
Admit Date: 08/12/24 19:45
Dear Doctor Rainer,
Please review the following and provide your response in the progress notes.
Clinical Indicators:
Pt admitted with recurrent bilateral LE cellulitis
Documented per H&P, '... ER: - fever 101.4Recurrent Elif Cellulitis Rt > Lt Sepsis secondary to the above.... with fever (100 at ER ) leukocytosis with RLLE exam findings c/w cellulitis.... IV Vancomycin ...'
Please update the status of sepsis documented in H&P:
Sepsis-POA still being monitored /treated
- Systemic manifestations of infection, with 2 or more SIRS criteria which include:
- Fever >100.4 degrees F or hypothermia < 96.8 degrees F
- Leukocytosis - WBC > 12,000 or leukopenia - WBC < 4,000 or > 10% bands
- Tachycardia > 90 beats per minute
- Tachypnea - RR > 20 breaths per minute or PaCO2 , 32mmHg
Source: Merck Manual 2012
Sepsis POA-resolved
Sepsis -ruled out
Other ( please specify)
Use of terms such as suspected, likely, concern for, or probable (associated with a specific diagnosis that is being evaluated, monitored, or treated as if it exists) are acceptable and can be coded in the inpatient setting, when documented at the
time of discharge.
Thank you,
Mackenzie Solorzano RN
CDI Specialist
[place] [facility]
Please use your independent medical judgment in providing your response.
--- NOTE | 2024-08-13 12:05 | WOUNDNOTE ---
[facility] RN note: Patient admitted with recurrent cellulitis. 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
See H&P for complete history.
PMH: obesity, venous stasis, DVT, HTN, adrenal adenoma, Gilbert's syndrome, L KESHAV, L hip ORIF.
Wound Location and type/assessment: Patient admitted with: Weeping calf skin with scattered small superficial dermal open areas posterior calves. +1 LE edema. +Palpable pedal pulses. Skin on heels blanchable mild red. 04/25/25 RLE venous Doppler
negative for DVT (limited study). 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 Patient wears Tubigrip and Velcro compression garments at home and uses a compression pump 2 hours q evening at
home. He applies 5x9 pad to absorb weeping calf skin daily at home. Sacral/coccyx crease red r/t MASD (red and intact). Lower abdominal/carter/groin skin red suspect r/t moisture and yeast. Patient stated he does not do well with antifungal powder.
Appetite: good.
Pressure redistribution devices in place: [employer] Accumax. Patient can turn self in bed.
Plan: Dressing changed le's. Heels off bed with pillows. Instructed patient pressure injury prevention measures.
Will confirm orders with Dr. Spear.
Care plan to be updated and will follow as needed.
Recommend follow up at wound care center upon discharge.
[2024-08-13 13:06] VITALS: BP 136/63; PULSE 75; O2SAT 93
[2024-08-13] MEDS: TYLENOL 1000 MG PO (13:09)
[2024-08-13] MEDS: ANCEF 10 IV ×2 (13:47→21:14)
[2024-08-13 15:14] VITALS: BP 107/48
--- NOTE | 2024-08-13 16:29 | CM ---
Alert awake oriented patient who lives with his Mera who lives in a 1 story home with 0 step to enter. He is independent in driving working and is all activities of daily living.He was offered VN he declined need.His will drive him home.
No VN hx / No SNF history
Pharmacy [facility]
PCP DR Yuen
PLAN Home Declined VN pt not home bound
[2024-08-13] MEDS: LOVENOX 40 MG SC (17:03)
[2024-08-13 17:56] LABS: Urine Albumin 2+ (Neg - Trace); Urine Bilirubin Negative (Negative); Urine Character Slightly Cloudy (Clear); Urine Color Yellow; Urine Glucose Negative (Negative); Urine Ketone Negative (Negative); Urine Leukocyte 3+ (Negative); Urine Nitrite Negative (Negative); Urine Occult Blood 4+ (Negative); Urine Specific Gravity 1.015 (<1.030); Urine Urobilinogen Negative (Neg - 1+)
[2024-08-13 18:13] LABS: Urine Bacteria Few (Negative); Urine Squamous Cell 0-2 /LPF (Few); Urine White Cell >100 /HPF (0-5)
[2024-08-13] MEDS: ANTIFUNGAL CLEAR 1 APPLIC TOPICAL (20:50)
[2024-08-13 23:22] VITALS: BP 126/62
[2024-08-14] MEDS: ANCEF 10 IV ×2 (05:03→13:22)
[2024-08-14 06:32] LABS: % Basophils 0.3 % (0-2); % Eosinophils 3.9 % (0-6); % Immature Granulocytes 0.3 % (0-0.5); % Lymphocytes 6.7 % (20.5-51.1); % Monocytes 6.3 % (1.7-9.3); % Neutrophils 82.5 % (42.2-75.2); Absolute Eosinophils 0.5 10^3/uL (0-0.7); Absolute Lymphocytes 0.8 10^3/uL (1.2-3.4); Absolute Monocytes 0.7 10^3/uL (0.1-0.6); Absolute Neutrophils 9.5 10^3/uL (1.4-6.5); Hematocrit 40.4 % (39.0-52.0); Hemoglobin 13.4 g/dL (13.0-18.0); Mean Corp Hgb Conc. 33.2 g/dL (33.0-37.0); Mean Corpuscular Hgb 29.5 pg (27.0-31.0); Mean Corpuscular Volume 88.8 fL (80.0-94.0); Mean Platelet Volume 9.8 fL (7.4-10.4); Nucleated Red Blood Cells % 0 % (-); Platelet Count 129 10^3/uL (130-400); Red Blood Cell Count 4.55 10^6/uL (4.70-6.10); Red Cell Dist. Width 14.8 % (11.5-14.5); White Blood Cell Count 11.6 10^3/uL (4.8-10.8)
[2024-08-14 06:52] LABS: Blood Urea Nitrogen 23 mg/dl (9-20); Calcium 8.5 mg/dl (8.4-10.2); Carbon Dioxide 29 mmol/L (22-30); Chloride 101 mmol/L (98-107); Estimated Creatinine Clearance 96 ml/min; Glucose 86 mg/dl (70-99); Potassium 3.6 mmol/L (3.5-5.1); Sodium 137 mmol/L (135-145); eGFR > 60.00
[2024-08-14 07:15] VITALS: BP 136/68
[2024-08-14] MEDS: ANTIFUNGAL CLEAR 1 APPLIC TOPICAL (08:24)
[2024-08-14] MEDS: HYDROPHOR 1 APPLIC TOPICAL (08:25)
[2024-08-14] MEDS: ASPIR LOW (ENTERIC COATED) 81 MG PO (08:25)
[2024-08-14] MEDS: ZESTRIL 20 MG PO (08:25)
[2024-08-14] MEDS: ORETIC 12.5 MG PO (08:25)
--- NOTE | 2024-08-14 10:25 | W.PN.HOSP.TC ---
Addendum entered and electronically signed by Basil Spear MD 08/14/24 11:52:
Transition cefazolin 2g IV q8 to cephalexin 1000mg po q8h x 7 more days.
- Afterwards, increase suppressive PCN-VK from daily to 500mg po bid.
Time of discharge 38 minutes
Original Note:
Today's Communication/Plan
-
Monitor vital signs see plan
Asymptomatic pyuria, urine culture pending
Continue with antibiotics
Possible discharge today if okay with infectious disease
Continue with wound care
Assessment / Plan
Assessment / Plan
General: Other (Flushed appearing 69y M in no acute distress.)
HEENT: Other (Dry MM. Thick neck.)
Respiratory: Other (Decreased BS at bases - otherwise clear.)
Cardiac: S1/S2 and Regular Rhythm; No Murmur
GI: Non Tender, Non Distended, Normal Bowel Sounds and Other (Obese.)
Musculoskeletal: No Clubbing and Other (Erythema and increased warmth RLE from the mid-pederson to the ankle. +warmth. Mild serous oozing circumferentially. No ulcerations. LLE with chronic stasis changes - no erythema or increased warmth.)
Neuro: AO x 3
Recurrent Elif Cellulitis Rt > Lt
Chronic Venous Insufficiency
leukocytosis with RLLE exam findings c/w cellulitis.
- Similar prior admissions
- Continue with IV Ancef and hold Pen VK; likely can be transition to Ancef. Will wait for ID evaluation
- Wound Care Following
- ID consulted
Asymptomatic pyuria
Urine culture pending
Patient denies any urinary symptoms
Benign Hypertension
- cont. Lisinopril/HCTZ
Thrombocytopenia
Monitor
Morbid Obesity secondary to excess calories
- Affects all aspects of life
DVT Prophylaxis: Lovenox
Code Status: Full
Anticipated Discharge: Today
Subjective/Interval History
-
Date of Service: August 14, 2024
Denies pain
Objective Data
-
Labs:
Laboratory Results
08/14/24
05:36
WBC 11.6 H
Hgb 13.4
Hct 40.4
Plt Count 129 L D
Sodium 137
Potassium 3.6
Chloride 101
Carbon Dioxide 29
BUN 23 H
Creatinine 0.9
Glucose 86
Calcium 8.5
Vital Signs:
Vital Signs
Temp Pulse Resp BP Pulse Ox
98.8 F 71 16 136/68 98
08/14/24 07:15 08/14/24 08:25 08/14/24 07:15 08/14/24 08:25 08/14/24 07:15
I&O
08/13/24 08/14/24 08/15/24
06:59 06:59 06:59
Intake Total 240 / 240 780 / 780
Balance 240 / 240 780 / 780
--- NOTE | 2024-08-14 11:34 | W.PN.ID1 ---
Date of Service
Date of Service: August 14, 2024
Today's Communication
- Transition cefazolin 2g IV q8 to cephalexin 1000mg po q8h x 7 more days.
- Afterwards, increase suppressive PCN-VK from daily to 500mg po bid.
Assessment / Plan
# Recurrent RLE cellulitis (despite on suppressive PCN-VK 500mg daily)
# Leukocytosis -improving
# Lymphedema and Venous stasis - compliant with compression
- Cellulitis improving
- Transition cefazolin 2g IV q8 to cephalexin 1000mg po q8h x 7 more days.
- Afterwards, increase suppressive PCN-VK from daily to 500mg po bid.
- Follow up with PCP>
Chief Complaint
-: Cellulitis
Subjective / Review of Systems
Leg is feeling better. Wants to go home.
Vital Signs / Physical Exam
Vital Signs
Vital Signs
Temp Pulse Resp BP Pulse Ox
98.8 F 71 16 136/68 98
08/14/24 07:15 08/14/24 08:25 08/14/24 07:15 08/14/24 08:25 08/14/24 07:15
Physical Exam
Constitutional: No Acute Distress and Comfortable
Cardiovascular: Regular Rate and S1/S2
Pulmonary: Clear
Gastrointestinal: Soft, Non Tender and Non Distended
Extremities: Edema (R>LLE lymphedema), Erythema (RLE decreased) and Venous Insufficiency (BLE)
Neurological: AO x 3
Objective Data
Lab Data
Lab Results
08/14/24 05:36
08/14/24 05:36
Estimated Creat Clear 96 ml/min 08/14/24 05:36
Lactic Acid Cancelled 08/12/24 18:15
Total Bilirubin 1.5 mg/dl (0.2-1.3) H 08/12/24 14:18
AST 24 U/L (17-59) 08/12/24 14:18
ALT 18 U/L (0-50) 08/12/24 14:18
Alkaline Phosphatase 77 U/L (38-126) 08/12/24 14:18
Most recent labs reviewed.
Micro Results:
08/13/24 06:16 Blood Culture - Preliminary
Blood/Venous No Growth in 24 hours- Final report to follow
08/13/24 17:47 Urine Culture - Pending
Urine
08/12/24 16:58 Blood Culture - Preliminary
Blood/Venous No Growth in 24 hours- Final report to follow
08/12/24 14:18 Blood Culture - Preliminary
Blood/Venous No Growth in 24 hours- Final report to follow
08/12/24 14:18 Influenza Types A & B (ASH) - Final
Nasal Swab Negative for Influenza A & B, NAAT
Negative results must be combined with clinical observations
and patient history.
Nucleic Acid Amplification test (NAAT)performed on the
[employer] platform.
08/12/24 CXR: The lungs appear clear.
Care Review
Plan reviewed with: Physician (Dr. Spear)
--- NOTE | 2024-08-14 11:57 | W.DCSUMMARY ---
Discharge Summary
Discharge Data
Date of Admission: 08/12/24
Date of Discharge: 08/14/24
-
Pending Results: No
Hospital Course
69-year-old male with past medical history of hypertension, morbid obesity, cellulitis on chronic antibiotics, chronic venous insufficiency came to the hospital with recurrent lower extremity cellulitis. Patient was initially started on IV
antibiotics were later transitioned to p.o. antibiotics prior to discharge. Patient was seen by infectious disease who on discharge recommended antibiotics to be transition to Ancef. Infectious disease also recommended patient to increase his
outpatient penicillin antibiotics once he is done with Ancef to 500 mg twice daily. He also had asymptomatic pyuria which was not treated since patient had no symptoms. Once his symptoms continue to improve, he was then discharged home with
instructions to follow-up with all his physicians outpatient.
Discharge Plan
-
Patient Disposition: Home with Home Care
Discharge Diagnosis/Procedures: Recurrent right lower extremity cellulitis
Leukocytosis
Lymphedema and venous stasis
Diet: As tolerated
Activity: As tolerated
Driving Restrictions: As prior to admission
Bathing Restrictions: None
Activity Restrictions/Additional Instructions:
Wound Care Instructions
Weeping/open skin Le's-clean with saline or mild soap and water, Aquaphor or Lachytrin lotion to dry intact skin le's daily. Adaptic, ABD pad, secure with Kelsy or Tubigrip stockinet, change daily and as needed for drainage.
Resume bilateral knee high compression with Tubigrip and Velcro compression garment as tolerated. Remove Velcro garment at bedtime. Reapply Tubigrip and Velcro garments every morning.
Elevate heels off bed with pillows
Follow up at wound care center call for an appointment.
Transition to cephalexin 1000mg po q8h x 7 more days.
- Afterwards, increase suppressive PCN-VK from daily to 500mg po bid.
Referrals:
Wilfrid,Alcides J., DO [Family Provider] - in less than 1 week
Prescriptions:
New
Critic-Aid Clear AF(miconazol) 2 % Ointment
1 applic topical BID Qty: 684 0RF
white petrolatum [Hydrophor] 42 % Ointment
1 applic topical DAILY Qty: 100 0RF
cephalexin 500 mg capsule
1,000 mg PO Q8H 7 Days Qty: 42 0RF
Continued
lisinopril-hydrochlorothiazide 20-12.5 mg Tablet
1 tab PO DAILY
aspirin 81 mg Tablet,Delayed Release (Dr/Ec)
81 mg PO DAILY
Centrum Men 8 mg iron- 200 mcg-600 mcg Tablet
1 tab PO DAILY
acetaminophen [Tylenol Extra Strength] 500 mg Tablet
1,000 mg PO Q6HPRN PRN (Reason: mild pain/fever)
turmeric 400 mg Capsule
800 mg PO DAILY
ibuprofen-acetaminophen [Advil Dual Action] 125-250 mg Tablet
2 tab PO Q8HPRN PRN (Reason: mild pain/fever)
Held
penicillin V potassium 500 mg Tablet
500 mg PO DAILY
Hold Instructions: Restart 500 mg p.o. twice daily after done with Keflex
Discharge Orders:
Discharge Patient (As Directed); Ordered 08/14/24
Ordered By: Basil Spear
Discharge Date and Time
Discharge Date/Time: 08/14/24 14:40
Print Language: HUNGARIAN
--- NOTE | 2024-08-14 12:23 | CM ---
MD entered order for discharge.
Spoke with pt and Mera who agree with dc today.
Mera will drive him home.
Pt is not home bound and works . he declined VN .
IMM reviewed all questions asked. IMM maren don chart.
PLAN Home no needs
[2024-08-14 14:02] VITALS: BP 136/63
== END 2024-08-14 14:40 | disposition home or self-care (01) | DRG 872 ==
LOC: 4 EAST ACU 19:45
PROVIDERS: Emergency Medicine; Physician Assistant Medical; ADMITTING PHYSICIAN Internal Medicine; ATTENDING PHYSICIAN Internal Medicine; EMERGENCY PHYSICIAN Emergency Medicine; FAMILY PHYSICIAN Family Medicine; OTHER PHYSICIAN Internal Medicine Infectious Disease
DX: A41.9 Sepsis, unspecified organism (principal); L03.115 Cellulitis of right lower limb; Z68.41 Body mass index [BMI] 40.0-44.9, adult; L03.116 Cellulitis of left lower limb; E80.4 Gilbert syndrome; I10 Essential (primary) hypertension; I87.8 Other specified disorders of veins; I87.2 Venous insufficiency (chronic) (peripheral); I89.0 Lymphedema, not elsewhere classified; D69.6 Thrombocytopenia, unspecified; M48.061 Spinal stenosis, lumbar region without neurogenic claudication; E66.813 Obesity, class 3; E66.01 Morbid (severe) obesity due to excess calories; Z96.642 Presence of left artificial hip joint; Z86.72 Personal history of thrombophlebitis; Z79.899 Other long term (current) drug therapy; Z79.82 Long term (current) use of aspirin; Z86.718 Personal history of other venous thrombosis and embolism; Z79.2 Long term (current) use of antibiotics; Z11.52 Encounter for screening for COVID-19
CPT/HCPCS: 71046; 80048; 80053; 81003; 81015; 83605; 84145; 85025; 85027; 87040; 87086; 87502; 87811; 96361; 96374; 97163; 99285